=== PATIENT | female | born 1940 | race Caucasian/White ===

== ENCOUNTER 2022-09-25 12:53 | Outpatient (OUT) | payer MEDICARE, MEDICAID, SELFPAY ==
--- NOTE | 2022-09-25 13:02 | US_ITS ---
The [address] [address] Patient Name: MICHEL GRIDER MRN: [id number] date: 1940 Sex: F Assigned Patient Location: US Current Patient Location: US Accession/Order Number: [id number] Exam Date: 09/25/2022 13:03 Report Date: 09/25/2022 14:09 At the request of: GRACIELA SWARTZ Procedure: US thyroid EXAMINATION: US thyroid HISTORY: Thyroid Nodule COMPARISON: Ultrasound thyroid 07/31/2020 FINDINGS: RIGHT LOBE: Heterogeneous lobe with stable heterogeneous 2.2 x 1.7 x 1.5 cm hypervascular TR 3 nodule within mid body. Lobe size: 3.7 x 2.2 x 2.8 cm LEFT LOBE: Diffuse heterogeneity throughout the lobe. 2 small hyperechoic nodules within mid body, 4 mm TR 4, and 3 mm TR 3 respectively. Lobe size: 3.6 x 2.0 x 1.8 cm ISTHMUS: Heterogeneous and thickened. Thickness: 6 cm IMPRESSION: 1. Markedly heterogeneous thyroid gland; nonspecific. 2. Stable 2.2 cm TR 3 nodule within right lobe mid body; unchanged over past 2 years, and biopsied on 09/15/2020 with benign results at that time. 3. Previously described large heterogeneous nodule within left lobe is not seen; the entire lobe is diffusely heterogeneous. There are 2 small nodules within the lobe; nonspecific but not overtly suspicious. TR3 (mildly suspicious): > 1.5 cm, follow-up ultrasound in 1, 3, and 5 years. > 2.5 cm, fine needle aspiration. Electronically authenticated by: LIBBY GOINS Date: 09/25/2022 14:09
== END 2022-09-25 12:54 | disposition home or self-care (01) ==
PROVIDERS: PCP Nurse Practitioner Family; Visit Provider Otolaryngology
DX: E04.2 Nontoxic multinodular goiter (principal)
CPT/HCPCS: 76536

== ENCOUNTER 2023-01-14 10:46 | Observation (INO) | payer MEDICARE, MEDICAID, SELFPAY ==
[2023-01-14] VITALS (30 sets, daily range): BP systolic 122–174; BP diastolic 62–100; PULSE 65–85; RESP 14–26; TEMP 36.7–36.9; O2SAT 92–99; BMI 23.8; BMI 22.3
--- NOTE | 2023-01-14 11:20 | XR_ITS ---
The [address] [address] Patient Name: MICHEL GRIDER MRN: [id number] date: 1940 Sex: F Assigned Patient Location: ED.MAIN Current Patient Location: ER Accession/Order Number: [id number] Exam Date: 01/14/2023 11:31 Report Date: 01/14/2023 12:18 At the request of: PK BRIGGS Procedure: XR knee RT 4V PROCEDURE: XR knee RT 4V HISTORY: fall, right knee pain COMPARISON: None. FINDINGS: BONES:Mild narrowing of the joint spaces with moderate size periarticular degenerative osteophytes. No fracture, dislocation, bone lesion. No significant articular surface irregularity. SOFT TISSUES:No visible soft tissue swelling. EFFUSION:None visible. OTHER: Negative. XR/XR knee RT 4V IMPRESSION: 1. Mild to moderate degenerative joint disease. 2. No acute bone abnormality. Electronically authenticated by: LIBBY GOINS Date: 01/14/2023 12:18
--- NOTE | 2023-01-14 11:20 | XR_ITS ---
The [address] [address] Patient Name: MICHEL GRIDER MRN: [id number] date: 1940 Sex: F Assigned Patient Location: ER Current Patient Location: ER Accession/Order Number: [id number] Exam Date: 01/14/2023 11:31 Report Date: 01/14/2023 12:21 At the request of: PK BRIGGS Procedure: XR hip RT 2V w/ pelvis PROCEDURE: XR hip RT 2V w/ pelvis HISTORY: fall, hip pain COMPARISON: None. FINDINGS: BONES:No fracture, acute abnormality, or significant arthropathy of the hips and pelvis. SOFT TISSUES:No visible soft tissue swelling. EFFUSION:None visible. OTHER: Marked scoliosis of the visible lower lumbar spine. XR/XR hip RT 2V w/ pelvis IMPRESSION: 1. No acute bone abnormality or significant degenerative changes of the right hip were patient describes pain. 2. Scoliosis and degenerative disc disease of lumbar spine. Electronically authenticated by: LIBBY GOINS Date: 01/14/2023 12:21
--- NOTE | 2023-01-14 11:59 | CT_ITS ---
[place] [id number] Patient Name: MICHEL GRIDER MRN: [id number] date: 1940 Sex: F Assigned Patient Location: ER Current Patient Location: ER Accession/Order Number: [id number] Exam Date: 01/14/2023 12:04 Report Date: 01/14/2023 13:12 At the request of: PK BRIGGS Procedure: CT pelvis wo con EXAMINATION: CT pelvis wo con HISTORY: fall, pelvis pain COMPARISON: No relevant comparison available. TECHNIQUE: Axial, Coronal, and Sagittal CT images obtained with IV contrast. Dose reduction techniques were achieved by using automated exposure control and/or adjustment of mA and/or kV according to patient size and/or use of iterative reconstruction technique. FINDINGS: BOWEL: Marked diverticulosis of the distal colon without acute inflammatory changes. No abnormal bowel dilation or wall thickening. LYMPH NODES: No adenopathy. URINARY BLADDER: No visible focal wall thickening, lesion, or calculus. PELVIC ORGANS: Hysterectomy. ANTERIOR WALL: No hernia. BONES: No bone lesion or fracture. Grade 2 right lateral listhesis of L3 on 4. Marked degenerative disc disease L5-S1. Multilevel marked degenerative facet arthropathy on the right side. OTHER: Negative. CT/CT pelvis wo con IMPRESSION: 1. No appreciable acute bone abnormality. 2. Marked scoliosis and degenerative changes of lumbar spine. Electronically authenticated by: LIBBY GOINS Date: 01/14/2023 13:12
--- NOTE | 2023-01-14 13:21 | ED.FALL1 ---
HPI - Fall General Chief Complaint: Fall Stated Complaint: LOWER EXTREMITY PAIN Time Seen by Provider: 01/14/23 11:00 Source: patient Mode of arrival: ambulance Limitations: no limitations History of Present Illness HPI Narrative: The patient fell out of her chair at home two days ago and injured the right knee and right hip/pelvis. She was unable to get out of bed this morning due to increased pain, despite taking tylenol at home. It was a mechanical fall - she is supposed to use a walker at home for support but, according to the family, frequently does not. As she went to stand she lost her footing and fell to the right, landing on the right side. She did not hit her head, injure her neck or her back. Family was present at the time. They told me that she lives with them and they care for her regularly. No other injuries. Related Data Allergies Allergy/AdvReac Type Severity Reaction Status Date / Time baclofen Allergy Severe Verified 01/14/23 10:59 codeine Allergy Severe Verified 01/14/23 10:59 methocarbamol [From Robaxin] Allergy Severe Verified 01/14/23 10:59 [facility] Medical History (Updated 01/14/23 @ 13:32 by Pk Briggs) History of ankle fracture ?Z87.81 - Personal history of (healed) traumatic fracture (ICD-10) History of arthritis ?Z87.39 - Personal history of other diseases of the musculoskeletal system and connective tissue (ICD-10) History of COPD ?Z87.09 - Personal history of other diseases of the respiratory system (ICD-10) History of dementia ?Z86.59 - Personal history of other mental and behavioral disorders (ICD-10) History of gastroesophageal reflux (GERD) ?Z87.19 - Personal history of other diseases of the digestive system (ICD-10) History of hypertension ?Z86.79 - Personal history of other diseases of the circulatory system (ICD-10) Surgical History (Updated 01/14/23 @ 11:17 by Jesse Bach) History of hysterectomy ?Z90.710 - Acquired absence of both cervix and uterus (ICD-10) Exam Narrative Exam Narrative: Nurses note and vital signs reviewed and patient is not hypoxic. afebrile General: The patient appears well and in no apparent distress. Patient is resting comfortably on cart. GCS = 15. Skin: Warm, dry, no pallor noted. Head: Normocephalic, atraumatic Neck: Supple, trachea mid-line. Full ROM and no cervical spinal tenderness. Eyes: PERRLA, EOMI ENT: TMs clear, no hemotympanum detected, no blood in posterior oropharynx Cardiovascular: Regular Rate and Rhythm Respiratory: Patient is in no distress, no accessory muscle use, lungs are clear to auscultation, no wheezing, rales or rhonchi Chest Wall: no tenderness, no flail chest, contusion, abrasion, or signs of trauma. Back: No thoracic or lumbar tenderness to palpation. Negative straight leg raise bilaterally. Musculoskeletal: Tenderness throughout the medial right hip and pain with any passive or active attempt to move the right hip. No RLE shortening or rotation. Tenderness throughout the right knee with a small amount of swelling and osteoarthritic changes noted. Pulses at femoral, DP, PT, and popliteal were 2+ bilaterally. Moves remaining three extremities and the right ankle and foot in all modalities with 5/5 strength. GI: Normal bowel sounds, no tenderness to palpation, no masses appreciated. No rebound, guarding, or rigidity noted. Neurological: A&O x4, normal equal performance test consultant strength, normal finger to nose, normal speech, normal coordination, normal motor, normal sensory. Psychiatric: Cooperative Constitutional Vital Signs, click to edit/add: Last Vital Signs Temp 98.5 F 01/14/23 10:48 Pulse 74 01/14/23 11:04 Resp 16 01/14/23 11:04 BP 174/100 H 01/14/23 10:48 Pulse Ox 97 01/14/23 11:04 O2 Del Method Room Air 01/14/23 10:55 Course Vital Signs Vital signs: Vital Signs Temperature 98.5 F 01/14/23 10:48 Pulse Rate 84 01/14/23 10:48 Respiratory Rate 16 01/14/23 10:48 Blood Pressure 174/100 H 01/14/23 10:48 Pulse Oximetry 97 01/14/23 10:48 Oxygen Delivery Method Room Air 01/14/23 10:48 Temperature 98.5 F 01/14/23 10:48 Pulse Rate 74 01/14/23 11:04 Respiratory Rate 16 01/14/23 11:04 Blood Pressure 174/100 H 01/14/23 10:48 Pulse Oximetry 97 01/14/23 11:04 Oxygen Delivery Method Room Air 01/14/23 10:55 MDM - Fall MDM Narrative Medical decision making narrative: xrays of the right hip and pelvis did not find an acute fracture. She was sent for CT pelvis which also did not identify fracture. Her knee xrays revealed arthritic changes without fracture. Patient and family informed of results. Patient unable to bear weight on the right LE or ambulate. She will be admitted for further evaluation and treatment including PT/OT eval. Case discussed with the individualized education plan aide admitting physician, Dr Whyte, who requested [facility] with obs admission. Imaging Data CT scan - pelvis: Radiologist's impression: Patient Name: MICHEL GRIDER MRN: [id number] date: 1940 Sex: F Assigned Patient Location: ER Current Patient Location: ER Accession/Order Number: [id number] Exam Date: 01/14/2023 12:04 Report Date: 01/14/2023 13:12 At the request of: PK BRIGGS Procedure: CT pelvis wo con EXAMINATION: CT pelvis wo con HISTORY: fall, pelvis pain COMPARISON: No relevant comparison available. TECHNIQUE: Axial, Coronal, and Sagittal CT images obtained with IV contrast. Dose reduction techniques were achieved by using automated exposure control and/or adjustment of mA and/or kV according to patient size and/or use of iterative reconstruction technique. FINDINGS: BOWEL: Marked diverticulosis of the distal colon without acute inflammatory changes. No abnormal bowel dilation or wall thickening. LYMPH NODES: No adenopathy. URINARY BLADDER: No visible focal wall thickening, lesion, or calculus. PELVIC ORGANS: Hysterectomy. ANTERIOR WALL: No hernia. BONES: No bone lesion or fracture. Grade 2 right lateral listhesis of L3 on 4. Marked degenerative disc disease L5-S1. Multilevel marked degenerative facet arthropathy on the right side. OTHER: Negative. IMPRESSION: 1. No appreciable acute bone abnormality. 2. Marked scoliosis and degenerative changes of lumbar spine. Electronically authenticated by: LIBBY GOINS Date: 01/14/2023 13:12 xr hip: Radiologist's impression: Patient Name: MICHEL RGIDER MRN: [id number] date: 1940 Sex: F Assigned Patient Location: ER Current Patient Location: ER Accession/Order Number: [id number] Exam Date: 01/14/2023 11:31 Report Date: 01/14/2023 12:21 At the request of: PK BRIGGS Procedure: XR hip RT 2V w/ pelvis PROCEDURE: XR hip RT 2V w/ pelvis HISTORY: fall, hip pain COMPARISON: None. FINDINGS: BONES:No fracture, acute abnormality, or significant arthropathy of the hips and pelvis. SOFT TISSUES:No visible soft tissue swelling. EFFUSION:None visible. OTHER: Marked scoliosis of the visible lower lumbar spine. IMPRESSION: 1. No acute bone abnormality or significant degenerative changes of the right hip were patient describes pain. 2. Scoliosis and degenerative disc disease of lumbar spine. Electronically authenticated by: LIBBY GOINS Date: 01/14/2023 12:21 xr knee: Radiologist's impression: Patient Name: MICHEL GRIDER MRN: [facility]:[id number] date: 1940 Sex: F Assigned Patient Location: ED.MAIN Current Patient Location: Accession/Order Number: [id number] Exam Date: 01/14/2023 11:31 Report Date: 01/14/2023 12:18 At the request of: PK BRIGGS Procedure: XR knee RT 4V PROCEDURE: XR knee RT 4V HISTORY: fall, right knee pain COMPARISON: None. FINDINGS: BONES:Mild narrowing of the joint spaces with moderate size periarticular degenerative osteophytes. No fracture, dislocation, bone lesion. No significant articular surface irregularity. SOFT TISSUES:No visible soft tissue swelling. EFFUSION:None visible. OTHER: Negative. IMPRESSION: 1. Mild to moderate degenerative joint disease. 2. No acute bone abnormality. Electronically authenticated by: LIBBY GOINS Date: 01/14/2023 12:18 Discharge Plan Discharge Chief Complaint: Fall Clinical Impression: Acute knee pain, Inability to ambulate due to hip, Contusion of hip Patient Disposition: Admitted as Observation Time of Disposition Decision: 13:32 Referrals: CLARA RAJAN [Primary Care Provider] - 1 week
--- NOTE | 2023-01-14 15:22 | SWNOTE1 ---
SW messaged INTERACTIVE ART DIRECTOR Hilaria to have PT/OT ordered for pt.
[2023-01-14] MEDS: LACTATED RINGER'S SOLUTION 1,000 ML 50 ML IV (16:59)
[2023-01-14] MEDS: LOSARTAN POTASSIUM 25 MG TABLET 50 MG PO (17:01)
[2023-01-14] MEDS: OXYBUTYNIN chloride 5 MG TABLET PO (17:03)
[2023-01-14 17:20] LABS: Basophils Absolute Auto 0.1 10^3/uL (0.0-0.1); Basophils Percent Auto 1.3 % (0.2-2.0); Eosinophils Percent Auto 0.4 % (0.9-7.0); Hematocrit 36.9 % (36.0-48.0); Hemoglobin 11.7 g/dL (12.0-16.0); Immature Granulocytes Abs Auto 0.01 10^3/uL (0.00-0.03); Immature Granulocytes Pct Auto 0.2 % (0.0-0.5); Lymphocytes Absolute Auto 1.7 10^3/uL (1.2-3.8); Mean Corpuscular HGB Conc 31.7 g/dL (29.9-35.2); Mean Corpuscular Hemoglobin 26.1 pg (26.7-34.0); Mean Corpuscular Volume 82.2 fL (81.0-99.0); Mean Platelet Volume 9.1 fL (9.5-13.5); Monocytes Absolute Auto 0.7 10^3/uL (0.3-0.8); Neutrophils Absolute Auto 2.8 10^3/uL (1.4-6.5); Neutrophils Percent Auto 53.1 % (43.0-75.0); Platelet Count 380 10^3/uL (150-450); Red Blood Count 4.49 10^6/uL (4.20-5.40); Red Cell Distribution Width 15.9 % (11.0-15.0); White Blood Count 5.2 10^3/uL (4.0-11.0)
[2023-01-14 17:43] LABS: Alanine Aminotransferase 11 U/L (14-59); Albumin Globulin Ratio 0.8; Albumin Level 3.1 g/dL (3.4-5.0); Alkaline Phosphatase 53 U/L (46-116); Aspartate Amino Transferase 15 U/L (15-37); BUN Creatinine Ratio 15.9; Bilirubin Total 0.9 mg/dL (0.2-1.0); Calcium 8.8 mg/dL (8.5-10.1); Carbon Dioxide 30.8 mmol/L (21.0-32.0); Chloride 103 mmol/L (98-107); Creatine Kinase 37 U/L (26-192); Creatine Kinase MB <0.50 ng/mL (<=3.60); Estimated GFR (African America >60 (>=60); Estimated GFR (Non-African Ame >60 (>=60); Free T3 2.54 pg/mL (2.18-3.98); Globulin 3.7 g/dL; Glucose 87 mg/dL (74-106); Magnesium 2.1 mg/dL (1.8-2.4); Myoglobin 54 ng/mL (9-82); Potassium 3.8 mmol/L (3.5-5.1); Sodium 138 mmol/L (136-145); Thyroid Stimulating Hormone 0.448 uIU/mL (0.358-3.740); Total Protein 6.8 g/dL (6.4-8.2); Troponin I High Sensitivity 17.7 pg/mL (4.0-51.3)
[2023-01-14 17:53] LABS: Lactate/Lactic Acid 0.7 mmol/L (0.4-2.0)
[2023-01-15] VITALS (19 sets, daily range): BP systolic 99–151; BP diastolic 49–73; PULSE 59–73; RESP 18–20; TEMP 36.5–36.9; O2SAT 58–95
[2023-01-15 00:51] LABS: Bilirubin Urine NEGATIVE (NEGATIVE); Blood Urine NEGATIVE (NEGATIVE); Clarity Urine CLEAR (CLEAR); Color Urine YELLOW (YELLOW); Glucose Urine UA NEGATIVE (NEGATIVE); Ketones Urine NEGATIVE (NEGATIVE); Leukocyte Esterase Urine NEGATIVE (NEGATIVE); Nitrite Urine NEGATIVE (NEGATIVE); Protein Urine TRACE mg/dL (NEG/TRACE); pH Urine 7.5 (5.0-9.0)
[2023-01-15 00:59] LABS: Bacteria Urine NONE SEEN #/HPF (NONE SEEN); Cast Seen? SEEN #/LPF (NONE SEEN); Crystals Seen? None Seen #/HPF (None Seen); Mucus Urine NONE SEEN (NONE SEEN); RBC Urine NONE SEEN #/HPF (0-2); Squamous Epithelial Cell Urine RARE #/LPF (NONE/RARE)
[2023-01-15 01:00] LABS: Hyaline Casts Urine RARE
[2023-01-15] MEDS: OMEPRAZOLE 40 MG CAPSULE.DR PO (06:37)
--- NOTE | 2023-01-15 08:36 | CM.NOTE ---
Rounds made with Dr. Whyte. Sitting in chair on arrival and had worked with P.T. prior to Hospitalist visit. Potential discharge later today.
--- NOTE | 2023-01-15 08:39 | P.HP_ITS ---
H&P: HPI History of Present Illness Chief complaint: LOWER EXTREMITY PAIN/ INABILITY TO AMBULATE Narrative: Patient had a fall at home. Had have EMS come and get her. With EMS there they tried to ambulate her without success. Brought into the emergency room. X-rays all negative but patient still with significant pain to the point of unable to ambulate. She is not safe for discharge to home was admitted for observation. Review of Systems ROS Status of ROS 10 or more systems reviewed and unremarkable except as noted in history and below Constitutional Denies: fever Eyes Denies: change in vision Ears, nose, mouth, and throat Denies: throat pain Cardiovascular Denies: chest pain Respiratory Denies: shortness of breath Gastrointestinal Denies: abdominal pain PFSH PFSH Medical History (Updated 01/14/23 @ 14:56 by Marcelina Barrera) Age related osteoporosis ?M81.0 - Age-related osteoporosis without current pathological fracture (ICD- 10) History of ankle fracture ?Z87.81 - Personal history of (healed) traumatic fracture (ICD-10) History of arthritis ?Z87.39 - Personal history of other diseases of the musculoskeletal system and connective tissue (ICD-10) History of COPD ?Z87.09 - Personal history of other diseases of the respiratory system (ICD- 10) History of dementia ?Z86.59 - Personal history of other mental and behavioral disorders (ICD-10) History of gastroesophageal reflux (GERD) ?Z87.19 - Personal history of other diseases of the digestive system (ICD-10) History of hypertension ?Z86.79 - Personal history of other diseases of the circulatory system (ICD- 10) Osteoarthritis ?M19.90 - Unspecified osteoarthritis, unspecified site (ICD-10) Surgical History (Updated 01/14/23 @ 14:57 by Marcelina Barrera) History of ankle surgery ?Z98.890 - Other specified postprocedural states (ICD-10) History of cataract surgery ?Z98.49 - Cataract extraction status, unspecified eye (ICD-10) History of hysterectomy ?Z90.710 - Acquired absence of both cervix and uterus (ICD-10) Social History (Updated 01/14/23 @ 14:59 by Marcelina Barrera) Within the past year, how often did you have a drink containing alcohol: never Score interpretation: A score less than 3 is consistent with normal alcohol consumption. Smoking status: Never smoker Non-prescribed substance use: denies use Previous occupational history: Office Engineer Highest level of school completed/degree received: some college, no degree Are you now , , , , never or living with a partner: In a typical week, how many times do you talk on the telephone with family, friends, or neighbors: 3 or more times per week How often do you get together with friends or relatives: 3 or more times per week How often do you attend denominational or latter-day services: 1-3 times per year Do you belong to any clubs or organizations such as denominational groups unions, [employer] or athletic groups, or school groups: no Total score: 1 Score interpretation: A score of less than or equal to 1 indicates the most socially isolated. Little interest or pleasure in doing things: not at all Feeling down, depressed, or hopeless: not at all Feel stressed/tense/nervous/anxious/difficulty sleeping: not at all Due to disability, difficulty making decisions: No Do you think of yourself as: straight/heterosexual Gender Identity: female Meds Home Medications and Allergies Home Medications Medication Instructions Recorded Confirmed Type famotidine 20 mg tablet 20 mg PO Q8H PRN acid reflux 01/14/23 01/14/23 History losartan 25 mg tablet 50 mg PO QDAY 01/14/23 01/14/23 History oxybutynin chloride 5 mg tablet 5 mg PO QDAY 01/14/23 01/14/23 History pantoprazole 40 mg tablet,delayed 40 mg PO DAILY 01/14/23 01/14/23 History release tramadol 50 mg tablet 50 mg PO DAILY PRN pain 01/14/23 01/14/23 History Allergies Allergy/AdvReac Type Severity Reaction Status Date / Time codeine Allergy Severe Verified 01/14/23 10:59 methocarbamol [From Robaxin] Allergy Severe Verified 01/14/23 10:59 Exam Constitutional Vital Signs, click to edit/add: Last Vital Signs Temp 98.5 F 01/15/23 06:00 Pulse 70 01/15/23 07:43 Resp 20 01/15/23 06:00 BP 151/73 H 01/15/23 06:00 Pulse Ox 92 L 01/15/23 06:00 O2 Del Method Room Air 01/15/23 06:00 Documenting provider has reviewed patient's vital signs: yes Common normals: no apparent distress HENMT Common normals: moist oral mucous membranes Chest Common normals: inspection of chest normal and palpation of chest normal Respiratory Common normals: normal respiratory effort and no retractions Cardio Common normals: regular rate and regular rhythm Extremity Common normals: normal to inspection and full ROM Results Labs Labs: Short CBC 01/14/23 Range/Units 16:56 WBC 5.2 (4.0-11.0) 10^3/uL Hgb 11.7 L (12.0-16.0) g/dL Hct 36.9 (36.0-48.0) % Plt Count 380 (150-450) 10^3/uL BMP 01/14/23 16:56 Sodium 138 Potassium 3.8 Chloride 103 Carbon Dioxide 30.8 BUN 11.0 Creatinine 0.69 Glucose 87 Calcium 8.8 Cardiac Enzymes 01/14/23 Range/Units 16:56 Total Creatine Kinase 37 (26-192) U/L CK-MB (CK-2) <0.50 (<=3.60) ng/mL Liver Function 01/14/23 Range/Units 16:56 Total Bilirubin 0.9 (0.2-1.0) mg/dL AST 15 (15-37) U/L ALT 11 L (14-59) U/L Alkaline Phosphatase 53 (46-116) U/L Albumin 3.1 L (3.4-5.0) g/dL Urine 01/14/23 Range/Units 00:10 Urine Color Yellow (YELLOW) Urine Clarity Clear (CLEAR) Urine pH 7.5 (5.0-9.0) Ur Specific [place] 1.020 (1.005-1.025) Urine Protein Trace (NEG/TRACE) mg/dL Urine Glucose (UA) Negative (NEGATIVE) mg/dL Assessment and Plan Assessment and Plan (1) Acute knee pain: (2) Inability to ambulate due to hip: (3) Contusion of hip: Plan Patient mated to observation with orthopedic injury-no fracture, unable to ambulate in ER, after resting overnight she has been up and ambulating in her room. We will see how she tolerates breakfast, ambulate in hallway, if she is successful with both of those she can be discharged home in improving condition. Medications see list. Follow-up with her PCP as needed. Iron deficiency anemia-monitor as an outpatient Hypertension-continue with current medications, monitor as an outpatient GERD-continue with current medications Bladder instability-continue with home medications
[2023-01-15] MEDS: POLYETHYLENE GLYCOL 3350 17 GM POWDER PACKET PO (09:55)
[2023-01-15] MEDS: OXYBUTYNIN chloride 5 MG TABLET PO (09:55)
[2023-01-15] MEDS: LOSARTAN POTASSIUM 25 MG TABLET 50 MG PO (09:55)
[2023-01-15] MEDS: PNEUMOCOCCAL 23 VACCINE 25 MCG/0.5 ML SYRINGE IM (10:15)
--- NOTE | 2023-01-15 12:24 | SWNOTE1 ---
SW spoke with pt and daughter in room. Therapy did recommend SNF for pt at discharge. SW did let them know this. Pt's daughter spoke with pt and they have decided to pursue SNF for pt. She is a precert. SW provided list from medicare.gov to pt's daughter, she will review and let SW know.
--- NOTE | 2023-01-15 13:14 | SWNOTE1 ---
Pt's daughter has chose [facility]. SW sent referral so they can cost out.
[2023-01-15] MEDS: LACTATED RINGER'S SOLUTION 1,000 ML 50 ML IV (13:43)
--- NOTE | 2023-01-15 14:48 | SWNOTE1 ---
SW checked in with [facility] and they are waiting for financial to give the OK. SW did review [employer] form with pt's daughter earlier, Pt's daughter voiced understanding and had no questions at this time. Pt's daughter signed form, original given to daughter and copy placed chart.
--- NOTE | 2023-01-15 15:25 | SWNOTE1 ---
Precert to [facility] started, SW notified daughter.
[2023-01-16] VITALS (9 sets, daily range): BP systolic 137–145; BP diastolic 65–71; PULSE 47–69; RESP 18; TEMP 36.6; O2SAT 94
[2023-01-16] MEDS: OMEPRAZOLE 40 MG CAPSULE.DR PO (06:08)
--- NOTE | 2023-01-16 08:36 | CM.NOTE ---
Rounding with Dr. Whyte. The patient has insurance approval for discharge to SNF. Pt. anticipated discharge today to [facility].
--- NOTE | 2023-01-16 08:50 | P.DS_ITS ---
DS: Providers Provider Date of admission: 01/14/23 13:33 Primary care physician: CLARA RAJAN Consults: 01/14/23 15:33 Occupational Therapy Eval and Treat Routine Reason for consultation: Generalized weakness; falls Has provider been notified: No Physical Therapy Eval and Treat Routine Reason for consultation: Generalized weakness; falls Has provider been notified: No DS: Diagnosis Discharge Diagnosis (1) Acute knee pain: (2) Inability to ambulate due to hip: (3) Contusion of hip: DS: Summary Hospital Course Hospital Course: Patient admitted through the emergency room to observation bed for fall, patient unable to ambulate in the emergency room. No other injuries, no fractures noted on x-rays. Patient was admitted for pain control. Physical therapy worked with the patient. They recommended rehab. Once the paperwork was completed patient was transferred to rehab for hopefully a short stay. Medications see list. Follow-up with her PCP at discharge. Time Spent with Patient Time attestation: Total time spent providing and/or coordinating discharge services: Exam Constitutional Vital Signs, click to edit/add: Last Vital Signs Temp 97.9 F 01/16/23 05:45 Pulse 52 L 01/16/23 07:56 Resp 18 01/16/23 05:45 BP 145/65 H 01/16/23 05:45 Pulse Ox 94 L 01/16/23 05:45 O2 Del Method Room Air 01/16/23 05:45 Documenting provider has reviewed patient's vital signs: yes Common normals: no apparent distress HENTX Common normals: moist oral mucous membranes Chest Common normals: inspection of chest normal and palpation of chest normal Respiratory Common normals: normal respiratory effort and no retractions Cardio Common normals: regular rate and regular rhythm Extremity Common normals: normal to inspection and full ROM Discharge Plan Discharge Disposition: Xfer SNF Discharge Medications: Continued famotidine 20 mg tablet 20 mg PO Q8H PRN (Reason: acid reflux) losartan 25 mg tablet 50 mg PO QDAY oxybutynin chloride 5 mg tablet 5 mg PO QDAY pantoprazole 40 mg tablet,delayed release (DR/EC) 40 mg PO DAILY tramadol 50 mg tablet 50 mg PO DAILY PRN (Reason: pain) Rx Instructions: Takes very rarely Meteorological Equipment Repairer/English Language Arts Teacher Instructions: Discharge to [facility] for rehab Forms: Portal Instructions Follow Up Appointments: Follow up with physician at [facility] Discharge Date/Time: 01/16/23 13:37
[2023-01-16] MEDS: OXYBUTYNIN chloride 5 MG TABLET PO (09:05)
[2023-01-16] MEDS: LOSARTAN POTASSIUM 25 MG TABLET 50 MG PO (09:05)
--- NOTE | 2023-01-16 11:28 | SWNOTE1 ---
Pt is approved to go to [facility] skilled. SW called and let daughter know. Pt's daughter is going to transport her to [facility] and she will be here around 1:00. SW let nursing and [facility] know time.
--- NOTE | 2023-01-16 11:37 | PT.DAILY ---
Physical Therapy Daily Note PT Daily Note/Assess Start: 01/16/23 11:29 Freq: Status: Active Protocol: Document 01/16/23 11:29 ROMAN (Rec: 01/16/23 11:36 ROMAN [id number]) Physical Therapy Daily Note/Assessment Time In/Time Out Time In 11:15 Time Out 11:28 Pain In Pain N/A Pain Out Pain N/A Subjective Subjective Pt sitting in BS chair upon arrival. Agrees to PT. Planned dc [facility] today. Therapeutic Exercise Time Therapeutic Exercise Minutes (minutes) 3 Therapeutic Exercise Units 0 Therapeutic Exercise Treatment Therapeutic Exercise Treatment Seated AP, LAQ, marches, and add squeezes 10x ea to improve functional mobility prior to gait. Therapeutic Activity Time Therapeutic Activity Minutes (minutes) 8 Therapeutic Activity Units 1 Therapeutic Activity Treatment Chair Transfer Ability Contact Guard Assist Therapeutic Activity Comments Pt performs sit>stand from BS chair to RW with CGA and increased time to complete. Amb 50' with RW SBA then needs to use restroom. Pt demonstrates forward flexed posture with gait. Pt able to ana/doff brief and using grab bar to assist with lowering to toilet and standing up. Static standing at sink with fair+ balance as she rests her body against sink. Pt amb back to BS chair about 15' with RW. Remains in BS chair with call light in reach and needs met. Total Physical Therapy Time Total Therapy Minutes 11 Total Physical Therapy Units 1 Summary Daily Note Summary Improved gait endurance. Requires increased time for transfers. Would benefit from SNF stay.
--- NOTE | 2023-01-16 11:42 | SWNOTE1 ---
SW completed HENS, updated packet, and sent over dc orders to [facility]. Pt is going to [facility] skilled for rehab.
== END 2023-01-16 13:37 ==
LOC: ER 13:32 → MS 14:00
PROVIDERS: Admitting Provider Family Medicine; Emergency Provider Emergency Medicine; PCP Nurse Practitioner Family; Visit Provider Family Medicine
DX: M25.561 Pain in right knee (principal); S70.01XA Contusion of right hip, initial encounter; R26.2 Difficulty in walking, not elsewhere classified; I10 Essential (primary) hypertension; W19.XXXA Unspecified fall, initial encounter; M81.0 Age-related osteoporosis without current pathological fracture; J44.9 Chronic obstructive pulmonary disease, unspecified; F03.90 Unspecified dementia, unspecified severity, without behavioral disturbance, psychotic disturbance, mood disturbance, and anxiety; M19.90 Unspecified osteoarthritis, unspecified site; K21.9 Gastro-esophageal reflux disease without esophagitis; Z98.49 Cataract extraction status, unspecified eye; Z87.81 Personal history of (healed) traumatic fracture; Z90.710 Acquired absence of both cervix and uterus; Z79.899 Other long term (current) drug therapy; Z23 Encounter for immunization
CPT/HCPCS: 36415; 72192; 73502; 73564; 80048; 80053; 81001; 82550; 82553; 83605; 83735; 83874; 83880; 84436; 84443; 84481; 84484; 85025; 87086; 87150; 87186; 90662; 90732; 94667; 94668; 94761; 97161; 97165; 97530; 97535; 99285; G0008; G0009; G0378

== ENCOUNTER 2024-09-24 19:43 | Emergency (ER) | payer MEDICARE, MEDICAID, SELFPAY ==
--- OUTSIDE RECORDS SUMMARY | 2023-09-02 09:40 | XMS_ITS ---
Author Organization [facility] Address [address] [place] [address] Care Team Providers Care Cafe Assistant Name Role Phone Blanche Joshi Primary Care Provider Robinson Grey [phone] REASON FOR VISIT IMPRESSION Encounters Encounter Location Date Provider Diagnosis [address] [address] 09/02/2023 Robinson Grey Plan Of Treatment No Information Progress Notes * MICHEL GRIDER LDOB:1940 (83 yo F)Acc No.[id number]:09/02/2023 Dental Appointment Patient: OSORIO FLORESHA Kelley Provider: Tacho Grey DDS :1940 A ge:82 Y S ex:Female Date:09/02/2023 Address:[address] [place], [place] [id number] Pcp:Blanche Joshi Subjective: * Chief Complaints: * 1 . IMPRESSION. * Medical History: Objective: * Vitals: Assessment: Plan: * Treatment: * Images: * Electronic signature of Gill Grey DDS on 09/24/2024 at 07:54 PM EDT Sign off status: Pending * Provider: Tacho Grey DDS Date: 09/02/2023 Generated for Renetta ross/Faashishg/eTransmitting on: 09/24/2024 07:54 PM EDT
--- OUTSIDE RECORDS SUMMARY | 2023-09-23 10:30 | XMS_ITS ---
Author Organization [facility] es Address [address] [address] Care Team Providers Care Legal Administrator Name Role Phone Blanche Joshi Primary Care Provider Robinson Grey [phone] REASON FOR VISIT IMPRESSION-MIKA Encounters Encounter Location Date Provider Diagnosis [address] [place] [address] 09/23/2023 Robinson Grey Plan Of Treatment No Information Progress Notes * MICHEL GRIDER LDOB:1940 (83 yo F)Acc No.[id number]:09/23/2023 Dental Appointment Patient: OSORIO FLORESHA Kelley Provider: Tacho Grey DDS :1940 A ge:82 Y S ex:Female Date:09/23/2023 Address:[address] [place], [place] [id number] Pcp:Blanche Joshi Subjective: * Chief Complaints: * 1 . IMPRESSION-MIKA. * Medical History: Objective: * Vitals: Assessment: Plan: * Treatment: * Images: * Electronic signature of Gill Grey DDS on 09/24/2024 at 07:55 PM EDT Sign off status: Pending * Provider: Tacho Grey DDS Date: 09/23/2023 Generated for Renetta ross/Fasaman/eTransmitting on: 09/24/2024 07:55 PM EDT
[2024-09-24] VITALS (27 sets, daily range): BP systolic 147–182; BP diastolic 67–113; PULSE 58–69; TEMP 37.2; O2SAT 80–98; BMI 21.9
--- OUTSIDE RECORDS SUMMARY | 2024-09-24 19:54 | XMS_ITS | Encounter Summary ---
Author Organization [facility] Address [address] [place] [address] Care Team Providers Care Reading Professor Name Role Phone MadelynOsbaldoie REPAIR DEPARTMENT SUPERVISOR Unavailable Craig Villanueva MD Primary Care Provider Friday, Melly MEASUREMENT ANALYST Unavailable [phone] Craig Villanueva MD Unavailable [phone] Hilaria Carrera RN Unavailable Leticia Palmer MEASUREMENT ANALYST Unavailable Amira Godoy COLOR CONTROL SUPERVISOR Unavailable Encounter Details Date Type Department Care Team (Late st Contact Info) Description 06/19/2023 [facility] [address] [facility] [address] [place] [address] Craig Villanueva MD 112 [facility] 110 [place] [address] Social History Tobacco Use Types Packs/Day Years Used Date Smoking Tobacco: Never Smokeless Tobacco: Never Alcohol Use Standard Drinks/Week Comments Not Currently 0 (1 standard drink = 0.6 oz pure alcohol) caffeine intake: 1-2 cups per day Social Connection and Isolation Panel [NHANES] A nswer Date Recorded In a typical week, how many times do you talk on the phone with family, friends, or neighbors? Never 05/14/2023 How often do you get together with friends or re latives? Never 05/14/2023 How often do you attend yazidi or adventist serv ices? Never 05/14/2023 Do you belong to any clubs o r organizations such as yazidi groups, unions, fraternal or athletic groups, or school groups? No 05/14/2023 How often do you attend meet ings of the clubs or organizations you belong to? Never 05/14/2023 Are you , , di vorced, , never , or living with a partner? 05/14/2023 AUDIT-C Answer Date Recorded Q1: How often do you have a drink containing alcohol? Never 05/14/2023 Q2: How many drinks containi ng alcohol do you have on a typical day when you are drinking? Patient does not drink Q3: How often do you have si x or more drinks on one occasion? Never 05/14/2023 Overall Financial Resource Strain (CARDIA) Answe r Date Recorded How hard is it for you to pa y for the very basics like food, housing, medical care, and heating? Hard 05/14/2023 [facility] of Occupat ional [facility] - Occupational Stress Questionnaire Answer Date Recorded Do you feel stress - tense, restless, nervous, or anxious, or unable to sleep at night because your mind is troubled all the time - these days? Rather much 05/14/2023 Exercise Vital Sign Answer Date Recorde d On average, how many days pe r week do you engage in moderate to strenuous exercise (like a brisk walk)? 0 days 05/14/2023 On average, how many minutes do you engage in exercise at this level? 0 min 05/14/2023 Hunger Vital Sign Answer Date Recorded Within the past 12 months, y ou worried that your food would run out before you got the money to buy more. Never true 05/14/19 24 Within the past 12 months, t he food you bought just didn't last and you didn't have money to get more. Never true 05/14/2023 PRAPARE - Transportation Answer Date Re corded In the past 12 months, has l ack of transportation kept you from medical appointments or from getting medications? No 04/25 In the past 12 months, has l ack of transportation kept you from meetings, work, or from getting things needed for daily living? No 05/14/2023 Housing Stability Vital Sign Answer Sher e Recorded In the last 12 months, was t here a time when you were not able to pay the mortgage or rent on time? Patient declined 05/14/19 24 In the last 12 months, how many places have you lived? 1 05/14/2023 In the last 12 months, was t here a time when you did not have a steady place to sleep or slept in a halfway (including now)? No 05/14/2023 Comments Unknown Sex and Gender Information Value Date Recorded Sex Assigned at Female 04/28/2023 11:51 AM EST Legal Sex Female 11:16 PM EDT Gender Identity Female 04/28/2023 11:51 AM EST Sexual Orientation Straight 04/28/2023 11 :51 AM EST documented as of this encounter Plan of Treatment Not on file documented as of this encounter Visit Diagnoses Not on filedocumented in this encounter Care Teams Reading Professor Relationship Specialty Start Date End Date Craig Villanueva MD [address] [facility] [address] [place] [address] PCP - General Internal Medicine 04/28/23 Craig Villanueva MD [address] [facility] [address] [place] [address] PCP - Pedro [place] 05/23/23 Blanche Joshi NP [address] [place] [address] Referring Physician 09/25/22FridayMelly LPN [address] [facility] [address] [place] [address] Licensed Practical Nurse Family Medicine 04/28/23 04/30/24 Hilaria Carrera RN [address] [place] [address] Licensed Practical Nurse Family Medicine 04/30/24 06/08/24 Leticia aPlmer LPN [address] [facility] [address] [place] [address] 06/08/24 Amira Godoy, JORGE [address] [place] [address] Health Science Instructor Family Medicine 06/08/24 documented as of this encounter
--- OUTSIDE RECORDS SUMMARY | 2024-09-24 19:54 | XMS_ITS | Encounter Summary ---
Author Organization [facility] Address [address] [place] [address] Care Team Providers Care Educational Speech Language Clinician Name Role Phone MadelynOsbaldoie MANUAL ARTS THERAPIST Unavailable [phone] Craig Villanueva MD Primary Care Provider [phone] Friday, Melly BARREL ENDSHAKER ADJUSTER Unavailable [phone] Craig Villanueva MD Unavailable [phone] Hilaria Carrera RN Unavailable Leticia Palmer BARREL ENDSHAKER ADJUSTER Unavailable Amira Godoy DIE OPERATOR Unavailable [phone] Encounter Details Date Type Department Care Team (Late st Contact Info) Description 07/03/2023 [facility] [address] [facility] 110 [place] [address] Craig Villanueva MD 112 [facility] 110 [place] [address] Social History Tobacco Use Types [...] Never 05/14/2023 How often do you attend religion or judaism serv ices? Never 05/14/2023 Do you belong to any clubs o r organizations such as religion groups, unions, fraternal or athletic groups, or [...] housing, medical care, and heating? Hard 05/14/2023 [facility] of Occupat ional [facility] - Occupational Stress Questionnaire Answer Date Recorded [...] place to sleep or slept in a long term (including now)? No 05/14/2023 Comments Unknown Sex [...] on filedocumented in this encounter Care Teams Educational Speech Language Clinician Relationship Specialty Start Date End Date Craig Villanueva MD [address] [facility] [address] [place] [address] PCP - General Internal Medicine 04/28/23 Craig Villanueva MD [address] [facility] [address] [place] [address] PCP - Pedro [place] 05/23/23 Blanche Joshi NP [address] [place] [address] Referring Physician 09/25/22FridayMelly LPN [address] [facility] 110 [place] [address] Licensed Practical Nurse Family Medicine 04/28/23 04/30/24 Hilaria Carrera RN [address] [place] [address] Licensed Practical Nurse Family Medicine 04/30/24 06/08/24 Leticia Palmer LPN [address] [facility] 110 [place] [address] 06/08/24 Amira Godoy, JORGE [address] [place] [address] Oil Mixer Family Medicine 06/08/24 documented as of this encounter
--- OUTSIDE RECORDS SUMMARY | 2024-09-24 19:54 | XMS_ITS | Encounter Summary ---
Author Organization [facility] Address [address] [place] [address] Care Team Providers Care Golf Course Patroller Name Role Phone MadelynOsbaldoie FREEZER UNLOADER Unavailable Craig Villanueva MD Primary Care Provider Friday, Melly EMPLOYMENT PROGRAM REPRESENTATIVE Unavailable [phone] Craig Villanueva MD Unavailable [phone] Hilaria Carrera RN Unavailable Leticia Palmer EMPLOYMENT PROGRAM REPRESENTATIVE Unavailable Amira Godoy ELECTRICAL PRODUCTS ENGINEER Unavailable Encounter Details Date Type Department Care Team (Late st Contact Info) Description 06/23/2023 [facility] [address] [facility] [address] [place] [address] Craig Villanueva MD 112 [facility] 110 [place] [address] Social History Tobacco Use Types [...] Never 05/14/2023 How often do you attend jainism or baptist serv ices? Never 05/14/2023 Do you belong to any clubs o r organizations such as jainism groups, unions, fraternal or athletic groups, or [...] housing, medical care, and heating? Hard 05/14/2023 [facility] of Occupat ional [facility] - Occupational Stress Questionnaire Answer Date [...] place to sleep or slept in a intermediate (including now)? No 05/14/2023 Comments Unknown Sex [...] on filedocumented in this encounter Care Teams Golf Course Patroller Relationship Specialty Start Date End Date Craig Villanueva MD [address] [facility] [address] [place] [address] PCP - General Internal Medicine 04/28/23 Craig Villanueva MD [address] [facility] 110 [place] [address] PCP - Pedro [place] 05/23/23 Blanche Joshi NP [address] [place] [address] Referring Physician 09/25/22FridayMelly LPN [address] [facility] [address] [place] [address] Licensed Practical Nurse Family Medicine 04/28/23 04/30/24 Hilaria Carrera RN [address] [place] [address] Licensed Practical Nurse Family Medicine 04/30/24 06/08/24 Leticia Palmer LPN [address] [facility] 110 [place] [address] 06/08/24 Amira Godoy, JORGE [address] [place] [address] [employer] Family Medicine 06/08/24 documented as of this encounter
--- OUTSIDE RECORDS SUMMARY | 2024-09-24 19:54 | XMS_ITS | CCD ---
Author Organization [facility] CliniSynv Care Team Providers Care Soil And Plant Scientist Name Role Phone ISABELL Rajan Primary Care Provider MD Alma Rosa Swartz Jr Attending Provider Blanche Kolb Unavailable ISABELL Rajan Attending Provider Blanche Rajan Primary Care Unavailable Alma Rosa Swartz Jr Admitting Unavailable Alma Rosa Swartz Jr Attending Unavailable Blanche Rajan Attending Unavailable Satinder, Blanche Admitting Unavailable Satinder, Blanche Primary Care Unavailable Satinder, Blanche Attending Unavailable Satinder, Blanche Admitting Unavailable Satinder, Blanche Primary Care Unavailable NO FAMILY, PHYSICIAN Primary Care Unavailable Blanche Rajan Attending Unavailable Satinder, Blanche Admitting Unavailable SATINDER, BLANCHE Primary Care Unavailable JASWANT ., DR TAMIKO Leonard Consulting Unavailable ASPENEREMelquiades, DR LUIGI Titus Admitting Unavailable ANIYAH, DR LUIGI Titus Attending Unavailable ANIYAH, DR LUIGI Titus Consulting Unavailable YADY AN Consulting Unavailable SERGEY HER Consulting Unavailable SHANIQUE JENSEN Consulting Unavailable ELISE SILVA Consulting Unavailable SATINDER, BLANCHE Admitting Unavailable SATINDER, BLANCHE Attending Unavailable SATINDER, BLANCHE Admitting Unavailable SATINDER, BLANCHE Attending Unavailable SATINDER, BLANCHE Consulting Unavailable SATINDER, BLANCHE Primary Care Unavailable ANGELES, DR MCMULLEN Admitting Unavailable ANGELES, DR MCMULLEN Attending Unavailable KELLIE .NOVA Consulting UnavailSERGEY Donis Consulting Unavailable SATINDER, BLANCHE Primary Care Unavailable NICHOLE HODGE Admitting Unavailable NICHOLE HODGE Attending Unavailable NICHOLE HODGE Consulting Unavailable KARISSA THOMSON Consulting Unavailable SATINDER, BLANCHE Primary Care Unavailable NICHOLE HODGE Admitting Unavailable NICHOLE HODGE Attending Unavailable DR LIBBY GOINS Consulting Unavailable NICHOLE HODGE Consulting Unavailable Pat Layne Unavailable Blanche Rajan MD Unavailable Craig Villanueva MD Primary Care Provider Guillermo SAMPLE PROCESSOR, Melly Unavailable Craig Villanueva MD Unavailable Satinder WILKERSON, Blanche Unavailable [phone] Palmer SAMPLE PROCESSOR, Elticia Unavailable Unavailable Jayne YARN DUMPER, Amira Unavailable CRAIG VILLANUEVA Attending Unavailable CRAIG VILLANUEVA Attending Unavailable CRAIG VILLANUEVA Attending Unavailable Allergies Allergy Classification Reported Allergen(s) Allergy Type Date of Onset Reaction(s) Facility (12 sources) Codeine; Translations: [codeine] Drug Allergy 1 Unknown Reaction [facility] (16 sources) Methocarbamol; Translations: [methocarbamol] Drug Allergy 1 Unknown [facility] (5 sources) Codeine Drug Allergy Unknown [employer] Other (1 source) Baclofen Drug Allergy [facility] Repository (1 source) Methocarbamol Drug Allergy 1 [facility] Rep[facility] Medications Current Medications Medication Drug Class(es) Dates Sig (Normalized) Sig (Original) acetaminophen 325 mg oral tablet (2 sources) Start: 07-27-2020 take 650 mg by mouth every six hours Acetaminophen Active 650 MG PO Q6H July 27, 2020 11:55am acetaminophen 325 mg / traMADol hydrochloride 37.5 mg oral tablet (7 sources) Opioid Agonist Start: 07-28-2020 End: 12-08-2023 take 0.5-1 tablets by mouth every six hours as needed for headache traMADol-Acetamino phen 37.5-325 MG 1/2 to 1 tablet as needed for neck or headache. Orally every 6 hrs for 3 days July, Active [id number] 200 actuat albuterol 0.09 mg/actuat metered dose inhaler (8 sources) beta2-Adrenergic Agonist Start: 04-25-2023 End: 04-24-2024 take 2 puff(s) by inhalation every four hours for wheezing albuterol HFA 90 mcg/act inhaler Indications: Panlobular emphysema (HCC) Inhale 2 puffs every 4 (four) hours if needed for wheezing 18 g 3 04/25/2023 Active amoxicillin 875 mg oral tablet (2 sources) Penicillin-class Antibacterial Start: 12-11-2021 take 1 tablet by mouth every twelve hours Amoxicillin 875 MG 1 tablet Orally every 12 hrs for 7 days Nov, Active baclofen 10 mg oral tablet (2 sources) gamma-Aminobutyric Acid-ergic Agonist Start: 02-21-2022 take 1 tablet by mouth every twelve hours Baclofen 10 MG 1 tablet with food or milk Orally Twice a day for 10 days Feb, Active cephalexin 500 mg oral capsule (5 sources) Cephalosporin Antibacterial Start: 07-27-2020 take 500 mg by mouth twice daily Cephalexin Active 500 MG PO Twice daily 8 July 27, 2020 11:06am Cephalexin Activ e donepezil hydrochloride 10 mg oral tablet (12 sources) Start: 09-02-2024 End: 09-02-2025 take 1 tablet by mouth at bedtime donepezil (Aricept) 10 MG tablet Indications: Moderate dementia with anxiety, unspecified dementia type (HCC) Take 1 tablet (10 mg) by mouth at bedtime 30 tablet 09/02/2024 09/02/2025 Active Start: 12-08-2023 End: 07-09-2025 take 1 tablet by mouth at bedtime donepezil (Aricept) 5 MG tablet Indications: Moderate dementia with anxiety, unspecified dementia type (HCC) Take 1 tablet (5 mg) by mouth at bedtime 30 tablet 07/09/2024 09/02/2024 Discontinued (Reorder) famotidine 20 mg oral tablet (2 sources) Histamine-2 Receptor Antagonist Start: 02-21-2022 take 1 tablet by mouth every twelve hours Famotidine 20 MG 1 tablet Orally Twice a day for 30 day(s) Feb, Active 24 hr ferrous sulfate 142 mg extended release oral tablet (7 sources) Start: 07-27-2020 Ferrous Sulfat e (Slow Fe) 142 mg (45 mg iron) tablet extended release Active 284 MG PO Every 48 hours July 27, 2020 11:07am Ferrous Sulfate Active hydrocortisone 10 mg/ml / neomycin 3.5 mg/ml / polymyxin b 05616 unt/ml otic solution (4 sources) Aminoglycoside Antibacterial, Polymyxin-class Antibacterial, Corticosteroid Start: 02-21-2022 Owcjsyud-Vzjlxwpjx-EM 3.5-27726-3 4 drops into affected ear Otic Three times a day for 7 day(s) Feb, Active Start: 12-11-2021 Neomycin-Polym yxin-HC 3.5-59914-4 4 drops into affected ear Otic Three times a day for 7 day(s) Nov, Active losartan potassium 25 mg oral tablet (17 sources) Angiotensin 2 Receptor Karime Start: 04-25-2023 take 1 tablet by mouth in the morning losartan (Cozaar) 25 MG tablet Indications: Hypertension, unspecified type Take 1 tablet (25 mg) by mouth in the morning. 100 tablet 3 04/25/2023 Active Start: 07-27-2020 take 50 mg by mouth once daily Losartan Active 50 MG PO Daily 60 July 27, 2020 10:08am Start: 07-24-2020 End: 07-27-2020 take 25 mg by mouth once daily Losartan Discontinued 2 5 MG PO Daily July 24, 2020 2:28pm July 27, 2020 11:08am take 2 tablets by [facility] every twenty-four hours Losartan Potassium 25 MG 2 tablet Oral Once a day for 90 day(s) Active omeprazole 20 mg delayed release oral tablet (2 sources) Proton Pump Inhibitor Start: 07-24-2020 take 20 mg by mouth once daily Omeprazole Active 20 MG PO Daily July 24, 2020 2:28pm oxybutynin chloride 5 mg oral tablet (14 sources) Cholinergic Muscarinic Antagonist Start: 08-23-2021 End: 12-09-2023 take 1 tablet by mouth once daily oxybutynin (Ditropan) 5 MG tablet Indications: Prolapse of urethra Take 1 tablet (5 mg) by mouth Daily 90 tablet 3 12/09/2023 Active pantoprazole 40 mg delayed release oral tablet (14 sources) Proton Pump Inhibitor Start: 04-28-2023 End: 12-08-2024 take 1 tablet by mouth once daily pantoprazole (ProtoNix) 40 MG EC tablet Indications: Hiatal hernia Take 1 tablet (40 mg) by mouth Daily 90 tablet 3 12/09/2023 12/08/2024 Active Start: 08-22-2020 take 1 tablet by xin th every twenty-four hours Protonix 40 MG 1 tablet Orally Once a day for 90 day(s) Aug, Active polyethylene glycol 3350 38970 mg powder for oral solution (7 sources) Osmotic Laxative Start: 07-27-2020 Polyethylene Glycol 3350 (Miralax) 17 gram/dose powder Active 8.5 GM PO Daily July 27, 2020 11:56am MiraLax Active Sennosides (Senokot) 8.6 mg tablet (2 sources) Start: 07-27-2020 take 1 tablet by mouth twice daily Sennosides (Senokot) 8.6 mg tablet Active 8.6 MG PO Twice daily July 27, 2020 11:55am Start: 07-27-2020 take 1 tablet by xin th twice daily Sennosides (Senokot) 8.6 mg tablet Active 8.6 MG PO Twice daily July 26, 2020 11:00pm sennosides, GROUP HOME (5 sources) Senokot Active triamcinolone acetonide 0.25 mg/ml topical cream (2 sources) Corticosteroid Start: 10-18-2022 End: 12-08-2023 triamcinolone (Kenalog) 0.025 % cream 10/18/2022 12/08/2023 Discontinued Problems Active Problems Problem Classification Problem Date Documented Da te Episodic/Chronic Abdominal pain (1 source) Unspecified abdominal pain; Translations: [UNSPECIFIED ABDOMINAL PAIN] Onset: 3 Episodic Chronic obstructive pulmonary disease and bronchiectasis (12 sources) Pulmonary emphysema; Translations: [Emphysema, unspecified] Onset: 3 11-07-2022 Chronic Deficiency and other anemia (2 sources) Microcytic anemia; Translations: [Iron deficiency anemia, unspecified] 07-27-2020 Episodic Delirium, dementia, and amnestic and other cognitive disorders (20 sources) Unspecified dementia without behavioral disturbance; Translations: [Dementia] Onset: 2 12-08-2023 Chronic E Codes: Fall (1 source) Fall on same level from slipping, tripping and stumbling with subsequent striking against unspecified object, initial encounter; Translations: [FALL SAME LVL SLIP STRK UNS OBJ INT] Onset: 3 Episodic Esophageal disorders (9 sources) Gastroesophageal reflux disease; Translations: [Gastro-esophageal reflux disease without esophagitis] Onset: 2 Resolved: 2 Chronic Essential hypertension (20 sources) Essential hypertension; Translations: [Essential (primary) hypertension] Onset: 2 Resolved: 2 Chronic Gastrointestinal hemorrhage (4 sources) Melena; Translations: [MELENA] Onset: 3 Episodic Genitourinary symptoms and ill-defined conditions (8 sources) Genuine stress incontinence; Translations: [Stress incontinence (female) (male)] Onset: 2 Resolved: 2 Chronic Malaise and fatigue (2 sources) Asthenia; Translations: [Weakness] 07-24-2020 Episodic Open wounds of head; neck; and trunk (4 sources) Laceration without foreign body of scalp, initial encounter; Translations: [LACERATION W/O FB SCALP INITIAL ENC] Onset: 3 Episodic Osteoarthritis (10 sources) Degenerative joint disease involving multiple joints; Translations: [Polyosteoarthritis, unspecified] Onset: 4 04-25-2023 Chronic Other aftercare (1 source) Other nursing home (current) drug therapy; Translations: [OTH HOUSING MANAGEMENT OFFICER CURRENT DRUG THERAPY] Onset: 3 Episodic Other aftercare (1 source) Encounter for removal of sutures Episodic Other connective tissue disease (2 sources) Recurrent falls ; Translations: [Repeated falls] 07-24-2020 Episodic Other ear and sense organ disorders (1 source) Impacted cerumen, right ear Episodic Other ear and sense organ disorders (1 source) Impacted cerumen, bilateral Episodic Other injuries and conditions due to external causes (1 source) Unspecified injury of head, initial encounter; Translations: [UNSPECIFIED INJURY HEAD INITIAL ENC] Onset: 3 Episodic Other lower respiratory disease (4 sources) Pleurodynia; Translations: [Pleurodynia] Onset: 2 Resolved: 2 Episodic Other nutritional; endocrine; and metabolic disorders (2 sources) Weight decreased; Translations: [Abnormal weight loss] 09-02-2024 Episodic Otitis media and related conditions (1 source) Otitis media, unspecified, right ear Episodic Residual codes; unclassified (6 sources) Urinary catheter in situ; Translations: [Presence of other specified devices] Onset: 5 07-09-2024 Episodic Spondylosis; intervertebral disc disorders; other back problems (15 sources) Pain in cervical spine; Translations: [Cervical disc disorder, unspecified, unspecified cervical region] Onset: 4 04-25-2023 Chronic Thyroid disorders (20 sources) Goiter; Translations: [Nontoxic goiter, unspecified] Onset: 3 Resolved: 3 10-15-2022 Chronic Thyroid disorders (2 sources) Disorder of thyroid gland; Translations: [Disorder of thyroid, unspecified] 07-26-2020 Episodic Unclassified (1 source) R07.81 - Pleurodynia; Translations: [R07.81 - Pleurodynia] Onset: 2 Unclassified (1 source) E04.1 - Nontoxic single thyroid nodule; Translations: [E04.1 - Nontoxic single thyroid nodule] Onset: 2 Unclassified (1 source) CONTACT W/AND (SUSP) EXPOS COVID-19; Translations: [CONTACT W/AND (SUSP) EXPOS COVID-19] Onset: 2 Past or Other Problems Problem Classification Problem Date Documented Date Episodic/Chronic Abdominal hernia (9 sources) Hiatal hernia; Translations: [Diaphragmatic hernia without obstruction or gangrene] Onset: 10-15-2022 10-15-2022 Episodic Deficiency and other anemia (8 sources) Iron deficiency anemia; Translations: [Iron deficiency anemia, unspecified] Onset: 10-15-2022 10-15-2022 Episodic Deficiency and other anemia (8 sources) Anemia; Translations: [Anemia, unspecified] Onset: 04-24-2023 04-24-2023 Episodic E Codes: Adverse effects of medical drugs (1 source) Adverse effect of antiparkinsonism drugs and other central muscle-tone depressants, initial encounter; Translations: [ADVRS EFF APK RX CNTRL MT DEPR INIT] Onset: 03-14-2022 Episodic Genitourinary symptoms and ill-defined conditions (17 sources) Incomplete emptying of bladder; Translations: [Retention of urine, unspecified] Onset: 04-24-2023 04-24-2023 Episodic Headache; including migraine (8 sources) Headache; Translations: [Headache] Onset: 04-24-2023 04-24-2023 Episodic Immunizations and screening for infectious disease (1 source) Encounter for immunization; Translations: [ENCOUNTER FOR IMMUNIZATION] Onset: 03-14-2022 Episodic Nutritional deficiencies (1 source) Cachexia; Translations: [CACHEXIA] Onset: 03-14-2022 Episodic Other connective tissue disease (3 sources) Pain in right toe(s); Translations: [PAIN IN RIGHT TOES] Onset: 03-20-2022 Episodic Other diseases of bladder and urethra (11 sources) Prolapse of urethra; Translations: [Other specified disorders of urethra] Onset: 04-24-2023 04-24-2023 Episodic Other diseases of kidney and ureters (10 sources) Hydronephrosis; Translations: [Unspecified hydronephrosis] Onset: 10-15-2022 07-26-2020 Episodic Other nervous system disorders (10 sources) Abnormal gait; Translations: [Unsteadiness on feet] Onset: 04-25-2023 04-25-2023 Episodic Other non-traumatic joint disorders (2 sources) Pain in right hip; Translations: [M25.551 - Pain in right hip] Onset: 08-23-2021 Resolved: 08-23-2021 Episodic Other nutritional; endocrine; and metabolic disorders (8 sources) Body mass index 25-29 - overweight; Translations: [Overweight] Onset: 04-24-2023 Resolved: 07-09-2024 04-24-2023 Episodic Residual codes; unclassified (4 sources) Altered mental status, unspecified; Translations: [ALTERED MENTAL STATUS UNSPECIFIED] Onset: 03-08-2022 Episodic Residual codes; unclassified (1 source) Body mass index (BMI) 20.0-20.9, adult; Translations: [BODY MASS INDEX BMI 20.0-20.9 ADULT] Onset: 03-14-2022 Episodic Skin and subcutaneous tissue infections (1 source) Cellulitis of right toe; Translations: [CELLULITIS OF RIGHT TOE] Onset: 03-21-2022 Episodic Urinary tract infections (20 sources) Urinary tract infectious disease; Translations: [Urinary tract infection, site not specified] Onset: 11-07-2022 07-24-2020 Episodic Results Test Name Value Interpretation Reference Range Facility CT CSPINE WO CONon CT CSPINE WO CON EXAMINATION: CT CSPINE WO CON HISTORY: UNSPECIFIED INJURY OF HEAD, INITIAL ENCOUNTER ; fall, forehead laceration COMPARISON: No relevant comparison available. TECHNIQUE: Axial, Coronal, and Sagittal images were created without IV contrast. Dose reduction techniques were achieved by using automated exposure control and/or adjustment of mA and/or kV according to patient size and/or use of iterative reconstruction technique. FINDINGS: VERTEBRAL BODIES: No fracture or bone lesion. Minimal grade 1 anterolisthesis of C5 in relation to C4 and C6. Right convex curvature of the cervical spine. FACET JOINTS: Multilevel marked degenerative facet arthropathy, greatest on left side. No fracture or facet joint widening. CERVICAL DISCS: Marked narrowing C4-5. Multilevel moderate narrowing with posterior disc-osteophyte complexes causing uddp-em-tnuywque central canal narrowing, left greater than right. CENTRAL CANAL: No evidence of hemorrhage. PARASPINAL AREA: Heterogeneous thyroid gland; no definable mass. IMPRESSION: 1. No appreciable acute abnormality. 2. Marked degenerative changes of cervical spine. Electronically authenticated by: LIBBY GOINS Date: 2022-07-16 12:29 Normal [facility] CT HEAD WO CONon 07-16-2022 CT HEAD WO CON EXAMINATION: CT HEAD WO CON HISTORY: UNSPECIFIED INJURY OF HEAD, INITIAL ENCOUNTER ; fall, forehead laceration COMPARISON: CT head 03/08/2022 TECHNIQUE: Axial CT images were obtained without IV contrast. Dose reduction techniques were achieved by using automated exposure control and/or adjustment of mA and/or kV according to patient size and/or use of iterative reconstruction technique. FINDINGS: BRAIN: No edema, hemorrhage, mass, acute infarction, or inappropriate atrophy. CSF SPACES: No hydrocephalus, subarachnoid hemorrhage, or mass. Appropriate for age. SKULL: No fracture, mass, or other significant visible lesion. SINUSES: No significant mucosal thickening or fluid on the limited views. ORBITS: No appreciable abnormality on the limited views. OTHER: Skin surface laceration over the midline forehead/anterior scalp; no radiopaque foreign body. IMPRESSION: 1. No intracranial hemorrhage or acute abnormality of the brain. 2. Age consistent atrophy and chronic small vessel ischemic changes. 3. Anterior scalp skin laceration. No radiopaque foreign body or bone involvement. Electronically authenticated by: LIBBY GOINS Date: 2022-07-16 12:22 Normal [facility] AMYLASEon 07-07-2022 Amylase [Catalytic activity/Vol] 75 U/L Normal 25-115 [facility] Comment on above: Performed By: #### M ALBCRL #### [facility] [address] [place] [address] Dr. Jesi Rm CBC AUTO DIFFon 07-07-2022 BASO # 0.1 103/ul Normal 0.0-0.1 [facility] Comment on above: Performed By: #### C BC #### [facility] [address] [place] [address] Dr. Jesi Rm Basophils/100 WBC (Bld) 0.9 % Normal 0.2-2.0 [facility] Comment on above: Performed By: #### C BC #### [facility] [address] [place] [address] Dr. Jesi Rm EO # 0.1 103/ul Normal 0.0-0.7 [facility] Comment on above: Performed By: #### C BC #### [facility] [address] [place] [address] Dr. Jesi Rm Eosinophils/100 WBC (Bld) 1.1 % Normal 0.9-7.0 [facility] Comment on above: Performed By: #### C BC #### [facility] [address] [place] [address] Dr. Jesi Rm Erythrocyte distribution width (RBC) [Ratio] 14.0 % Normal 11.0-15.0 [facility] Comment on above: Performed By: #### C BC #### [facility] [address] [place] [address] Dr. Jesi Rm Hematocrit (Bld) [Volume fraction] 40.9 % Normal 36.0-48.0 [facility] Comment on above: Performed By: #### C BC #### [facility] [address] [place] [address] Dr. Jesi Rm Hemoglobin (Bld) [Mass/Vol] 13.4 g/dL Normal 12.0-16.0 [facility] Comment on above: Performed By: #### C BC #### [facility] [address] [place] [address] Dr. Jesi Rm IG # 0.02 10e3/ul Normal 0.00-0.03 [facility] Comment on above: Performed By: #### C BC #### [facility] [address] [place] [address] Dr. Jesi Rm IG % 0.4 % Normal 0.0-0.5 [facility] Comment on above: Performed By: #### C BC #### [facility] [address] [place] [address] Dr. Jesi Rm LYMPH # 1.5 103/ul Normal 1.2-3.8 [facility] Comment on above: Performed By: #### C BC #### [facility] [address] [place] [address] Dr. Jesi Rm Lymphocytes/100 WBC (Bld) 26.8 % Normal 20.5-60.0 [facility] Comment on above: Performed By: #### C BC #### [facility] [address] [place] [address] Dr. Jesi Rm MANUAL DIFF REQ NO Normal [facility] Comment on above: Performed By: #### C BC #### [facility] [address] [place] [address] Dr. Jesi Rm MCH (RBC) [Entitic mass] 27.7 pg Normal 26.7-34.0 [facility] Comment on above: Performed By: #### C BC #### [facility] [address] [place] [address] Dr. Jesi Rm MCHC (RBC) [Mass/Vol] 32.8 g/dL Normal 29.9-35.2 [facility] Comment on above: Performed By: #### C BC #### [facility] [address] [place] [address] Dr. Jesi Rm MCV (RBC) [Entitic vol] 84.7 fL Normal 81.0-99.0 [facility] Comment on above: Performed By: #### C BC #### [facility] [address] [place] [address] Dr. Jesi Rm MONO # 0.6 103/ul Normal 0.3-0.8 [facility] Comment on above: Performed By: #### C BC #### [facility] [address] [place] [address] Dr. Jesi Rm Monocytes/100 WBC (Bld) 10.2 % Normal 1.7-12.0 [facility] Comment on above: Performed By: #### C BC #### [facility] [address] [place] [address] Dr. Jesi Rm NEUT # 3.4 103/ul Normal 1.4-6.5 [facility] Comment on above: Performed By: #### C BC #### [facility] [address] [place] [address] Dr. Jesi Rm Neutrophils/100 WBC (Bld) 60.6 % Normal 43.0-75.0 [facility] Comment on above: Performed By: #### C BC #### [facility] [address] [place] [address] Dr. Jesi Rm Platelet mean volume (Bld) [Entitic vol] 8.8 fL Critically low 9.5-13.5 [facility] Comment on above: Performed By: #### C BC #### [facility] [address] [place] [address] Dr. Jesi Rm PLT 337 103/ul Normal 150-450 [facility] Comment on above: Performed By: #### C BC #### [facility] [address] [place] [address] Dr. Jesi Rm RBC 4.83 106/ul Normal 4.20-5.40 [facility] Comment on above: Performed By: #### C BC #### [facility] [address] [place] [address] Dr. Jesi Rm WBC 5.6 103/ul Normal 4.0-11.0 [facility] Comment on above: Performed By: #### C BC #### [facility] [address] ABD/PELVIS WO CONon 07-07 CT ABD/PELVIS WO CON EXAM: CT ABD/PELVIS WO CON HISTORY: UNSPECIFIED ABDOMINAL PAIN woke up to bowel movement but only blood came out. Dark and hard stool. COMPARISON: None. TECHNIQUE: Axial CT imaging was performed through the abdomen and pelvis without intravenous contrast. Multiplanar reformats were performed. Dose reduction techniques were achieved by using automated exposure control and/or adjustment of mA and/or kV according to patient size and/or use of iterative reconstruction technique. FINDINGS: Lung bases: Lung bases are clear. No pleural effusion. GI upper: Moderate to large hiatal hernia. Small moderate duodenal diverticulum. Liver: Normal size and contour. Gallbladder: No significant abnormality. No cholelithiasis. Biliary system: No intra or extrahepatic biliary ductal dilatation. Spleen: Normal size. Pancreas: Unremarkable. Adrenal glands: Normal adrenal glands. Kidneys/ureters: Normal contours. No hydronephrosis or ureterolithiasis. No nephrolithiasis. Vessels: No aneurysmal dilatation of the aorta. Atherosclerotic disease is noted. Lymph Nodes: No lymphadenopathy. Small bowel: No wall thickening or dilatation. Colon: No dilatation. Colonic diverticulosis. Appendix: No findings of appendicitis. Peritoneal cavity: No free fluid or peritoneum. Lower : Hysterectomy. The bladder is not well distended which limits evaluation; no significant abnormality demonstrated. Bones: Severe dextroscoliotic curvature of the lumbar spine. No acute bony abnormality. Mild/moderate spondylosis of the lower lumbar spine. Soft tissues: No acute finding. Additional findings: None. IMPRESSION: 1. No evidence of acute intra-abdominal abnormality on noncontrast examination. No CT finding to explain patient's symptoms. Further evaluation should be considered on clinical grounds, especially if symptoms persist. 2. Diverticulosis without evidence of diverticulitis. 3. Please see above for additional findings. Electronically authenticated by: KARISSA THOMSON Date: 2022-07-07 05:37 Normal [facility] LIPASEon 07-07-2022 Lipase [Catalytic activity/Vol] 152.0 U/L Normal 73.0-393.0 [facility] Comment on above: Performed By: #### M ALBCRL #### [facility] [address] [address] [address] Jesi Rm OCC BLD IMMUNO SCREENon 06-22 OCCULT BLOOD Negative Normal NEGATIVE [facility] Comment on above: Performed By: #### O BSCRN #### [facility] [address] [address] [address] Jesi Rm PROF 14(COMP METB)on 023 Albumin [Mass/Vol] 3.6 g/dL Normal 3.4-5.0 [facility] Comment on above: Performed By: #### M ALBCRL #### [facility] [address] [address] [address] Jesi Rm Albumin/Globulin [Mass ratio] 0.9 {ratio} Normal [facility] Comment on above: Performed By: #### M ALBCRL #### [facility] [address] [place] [address] Dr. Jesi Rm ALP [Catalytic activity/Vol] 52 U/L Normal 46-116 [facility] Comment on above: Performed By: #### M ALBCRL #### [facility] [address] [address] [address] Jesi Rm ALT [Catalytic activity/Vol] 15 U/L Normal 14-59 [facility] Comment on above: Performed By: #### M ALBCRL #### [facility] [address] [address] [address] Jesi Rm Anion gap [Moles/Vol] 8.0 mmol/L Normal [facility] Comment on above: Performed By: #### M ALBCRL #### [facility] [address] [address] [address] Jesi Rm AST [Catalytic activity/Vol] 14 U/L Critically low 15-37 [facility] Comment on above: Performed By: #### M ALBCRL #### [facility] [address] [address] [address] Jesi Rm Bilirubin [Mass/Vol] 0.4 mg/dL Normal 0.2-1.0 [facility] Comment on above: Performed By: #### M ALBCRL #### [facility] [address] [address] [address] Jesi Rm Calcium [Mass/Vol] 9.4 mg/dL Normal 8.5-10.1 [facility] Comment on above: Performed By: #### M ALBCRL #### [facility] [address] [address] [address] Jesi Rm Chloride [Moles/Vol] 103 mmol/L Normal 98-107 [facility] Comment on above: Performed By: #### M ALBCRL #### [facility] [address] [address] [address] Jesi Rm CO2 [Moles/Vol] 29.7 mmol/L Normal 21.0-32.0 [facility] Comment on above: Performed By: #### M ALBCRL #### [facility] [address] [place] [address] Dr. Jesi Rm Creatinine [Mass/Vol] 0.80 mg/dL Normal 0.55-1.02 [facility] Comment on above: Performed By: #### M ALBCRL #### [facility] [address] [address] [address] Jesi Rm EGFR-AF SOMALI >60 Normal >=60 [facility] Comment on above: Performed By: #### M ALBCRL #### [facility] [address] [place] [address] Dr. Jesi Rm EGFR-NON AF SOMALI >60 Normal >=60 [facility] Comment on above: Performed By: #### M ALBCRL #### [facility] [address] [address] [address] Jesi Rm Globulin (S) [Mass/Vol] 3.8 g/dL Normal [facility] Comment on above: Performed By: #### M ALBCRL #### [facility] [address] [place] [address] Dr. Jesi Rm Glucose [Mass/Vol] 101 mg/dL Normal 74-106 [facility] Comment on above: Performed By: #### M ALBCRL #### [facility] [address] [place] [address] Dr. Jesi Rm Potassium [Moles/Vol] 3.7 mmol/L Normal 3.5-5.1 [facility] Comment on above: Performed By: #### M ALBCRL #### [facility] [address] [place] [address] Dr. Jesi Rm Protein [Mass/Vol] 7.4 g/dL Normal 6.4-8.2 [facility] Comment on above: Performed By: #### M ALBCRL #### [facility] [address] [place] [address] Dr. Jesi Rm Sodium [Moles/Vol] 137 mmol/L Normal 136-145 [facility] Comment on above: Performed By: #### M ALBCRL #### [facility] [address] [place] [address] Dr. Jesi Rm Urea nitrogen [Mass/Vol] 17.0 mg/dL Normal 7.0-18.0 [facility] Comment on above: Performed By: #### M ALBCRL #### [facility] [address] [place] [address] Dr. Jesi Rm Urea nitrogen/Creatinine [Mass ratio] 21.2 mg/mg Normal [facility] Comment on above: Performed By: #### M ALBCRL #### [facility] [address] [place] [address] Dr. Jesi Rm CBC AUTO DIFFon 03-20-2022 BASO # 0.1 103/ul Normal 0.0-0.1 [facility] Comment on above: Performed By: #### C BC #### [facility] [address] [place] [address] Dr. Jesi Rm Basophils/100 WBC (Bld) 0.8 % Normal 0.2-2.0 [facility] Comment on above: Performed By: #### C BC #### [facility] [address] [place] [address] Dr. Jesi Rm EO # 0.0 103/ul Normal 0.0-0.7 [facility] Comment on above: Performed By: #### C BC #### [facility] [address] [place] [address] Dr. Jesi Rm Eosinophils/100 WBC (Bld) 0.6 % Critically low 0.9-7.0 [facility] Comment on above: Performed By: #### C BC #### [facility] [address] [place] [address] Dr. Jesi Rm Erythrocyte distribution width (RBC) [Ratio] 13.7 % Normal 11.0-15.0 [facility] Comment on above: Performed By: #### C BC #### [facility] [address] [place] [address] Dr. Jesi Rm Hematocrit (Bld) [Volume fraction] 38.4 % Normal 36.0-48.0 [facility] Comment on above: Performed By: #### C BC #### [facility] [address] [place] [address] Dr. Jesi Rm Hemoglobin (Bld) [Mass/Vol] 12.5 g/dL Normal 12.0-16.0 [facility] Comment on above: Performed By: #### C BC #### [facility] [address] [place] [address] Dr. Jesi Rm IG # 0.02 10e3/ul Normal 0.00-0.03 [facility] Comment on above: Performed By: #### C BC #### [facility] [address] [place] [address] Dr. Jesi Rm IG % 0.3 % Normal 0.0-0.5 [facility] Comment on above: Performed By: #### C BC #### [facility] [address] [place] [address] Dr. Jesi Rm LYMPH # 1.6 103/ul Normal 1.2-3.8 [facility] Comment on above: Performed By: #### C BC #### [facility] [address] [place] [address] Dr. Jesi mR Lymphocytes/100 WBC (Bld) 22.4 % Normal 20.5-60.0 [facility] Comment on above: Performed By: #### C BC #### [facility] [address] [place] [address] Dr. Jesi Rm MANUAL DIFF REQ NO Normal [facility] Comment on above: Performed By: #### C BC #### [facility] [address] [place] [address] Dr. Jesi Rm MCH (RBC) [Entitic mass] 28.0 pg Normal 26.7-34.0 [facility] Comment on above: Performed By: #### C BC #### [facility] [address] [place] [address] Dr. Jesi Rm MCHC (RBC) [Mass/Vol] 32.6 g/dL Normal 29.9-35.2 [facility] Comment on above: Performed By: #### C BC #### [facility] [address] [place] [address] Dr. Jesi Rm MCV (RBC) [Entitic vol] 85.9 fL Normal 81.0-99.0 [facility] Comment on above: Performed By: #### C BC #### [facility] [address] [place] [address] Dr. Jesi Rm MONO # 0.7 103/ul Normal 0.3-0.8 [facility] Comment on above: Performed By: #### C BC #### [facility] [address] [place] [address] Dr. Jesi Rm Monocytes/100 WBC (Bld) 9.8 % Normal 1.7-12.0 [facility] Comment on above: Performed By: #### C BC #### [facility] [address] [place] [address] Dr. Jesi Rm NEUT # 4.8 103/ul Normal 1.4-6.5 [facility] Comment on above: Performed By: #### C BC #### [facility] [address] [place] [address] Dr. Jesi Rm Neutrophils/100 WBC (Bld) 66.1 % Normal 43.0-75.0 [facility] Comment on above: Performed By: #### C BC #### [facility] [address] [address] [address] Jesi Rm Platelet mean volume (Bld) [Entitic vol] 8.8 fL Critically low 9.5-13.5 [facility] Comment on above: Performed By: #### C BC #### [facility] [address] [address] [address] Jesi Rm PLT 307 103/ul Normal 150-450 [facility] Comment on above: Performed By: #### C BC #### [facility] [address] [place] [address] Dr. Jesi Rm RBC 4.47 106/ul Normal 4.20-5.40 [facility] Comment on above: Performed By: #### C BC #### [facility] [address] [place] [address] Dr. Jesi Rm WBC 7.2 103/ul Normal 4.0-11.0 [facility] Comment on above: Performed By: #### C BC #### [facility] [address] [place] [address] Dr. Jesi Rm CRPon 03-20-2022 CRP 0.9 mg/dL Normal <=1.0 [facility] Comment on above: Performed By: #### C BC #### [facility] [address] [place] [address] Dr. Jesi Rm PROF CHEM 8 (BAS METB)on Anion gap [Moles/Vol] 9.8 mmol/L Normal [facility] Comment on above: Performed By: #### C BC #### [facility] [address] [place] [address] Dr. Jesi Rm Calcium [Mass/Vol] 9.1 mg/dL Normal 8.5-10.1 [facility] Comment on above: Performed By: #### C BC #### [facility] [address] [place] [address] Dr. Jesi Rm Chloride [Moles/Vol] 102 mmol/L Normal 98-107 [facility] Comment on above: Performed By: #### C BC #### [facility] [address] [place] [address] Dr. Jesi Rm CO2 [Moles/Vol] 27.6 mmol/L Normal 21.0-32.0 [facility] Comment on above: Performed By: #### C BC #### [facility] [address] [address] [address] Jesi Rm Creatinine [Mass/Vol] 0.82 mg/dL Normal 0.55-1.02 [facility] Comment on above: Performed By: #### C BC #### [facility] [address] [address] [address] Jesi Rm EGFR-AF SOMALI >60 Normal >=60 [facility] Comment on above: Performed By: #### C BC #### [facility] [address] [place] [address] Dr. Jesi Rm EGFR-NON AF SOMALI >60 Normal >=60 [facility] Comment on above: Performed By: #### C BC #### [facility] [address] [address] [address] Jesi Rm Glucose [Mass/Vol] 111 mg/dL Critically high 74-106 [facility] Comment on above: Performed By: #### C BC #### [facility] [address] [address] [address] Jesi Rm Potassium [Moles/Vol] 3.4 mmol/L Critically low 3.5-5.1 [facility] Comment on above: Performed By: #### C BC #### [facility] [address] [address] [address] Jesi Rm Sodium [Moles/Vol] 136 mmol/L Normal 136-145 [facility] Comment on above: Performed By: #### C BC #### [facility] [address] [place] [address] Dr. Jesi Rm Urea nitrogen [Mass/Vol] 9.0 mg/dL Normal 7.0-18.0 [facility] Comment on above: Performed By: #### C BC #### [facility] [address] [place] [address] Dr. Jesi Rm Urea nitrogen/Creatinine [Mass ratio] 11.0 mg/mg Normal [facility] Comment on above: Performed By: #### C BC #### [facility] [address] [place] [address] Dr. Jesi Rm SED RATE WESTERGRENon 2021 SED RATE 26 mm/hr Normal <=30 [facility] Comment on above: Performed By: #### S EDR #### [facility] [address] [place] [address] Dr. Jesi Rm URIC ACID SERUMon 03-20-2022 Urate [Mass/Vol] 3.9 mg/dL Normal 2.6-6.0 [facility] Comment on above: Performed By: #### C BC #### [facility] [address] [place] [address] Dr. Jesi Rm XR FOOT RT MIN 3 VIEWSon XR FOOT RT MIN 3 VIEWS EXAM: XR FOOT RT MIN 3 VIEWS HISTORY: Foot pain COMPARISON: None. TECHNIQUE: 3 views FINDINGS: No fracture, dislocation, subluxation or osseous lesion. Joint spaces are unremarkable for patient's age. Hammertoe deformity of the second third and questionably the fourth digits. Postoperative changes of the medial malleolus No gross soft tissue edema. IMPRESSION: No osseous abnormality or radiographic evidence of osteomyelitis. Electronically authenticated by: SERGEY BARNES Date: 2022-03-20 15:44 Normal [facility] MRI BRAIN WO CONon 2 MRI BRAIN WO CON EXAM: MRI BRAIN WO CON HISTORY: Altered mental status COMPARISON: Head CT 03/08/2022 TECHNIQUE: Multiplanar, multisequence MR imaging head was performed without intravenous contrast. FINDINGS: There is a 5 x 7 mm focus of increased diffusion signal with intermediate to decreased ADC signal seen within the midbrain to the left and right of midline in the region of the cerebral aqueduct on image 36 of the diffusion series with no corresponding T2/FLAIR signal abnormality. No acute hemorrhage or mass effect. There is moderate cerebral atrophy with concordant prominence of the ventricles. Moderate patchy areas of increased FLAIR signal are seen within the subcortical and periventricular white matter Expected flow voids are seen within the intracranial internal carotid, vertebral and basilar arteries. The cerebellopontine angles and internal auditory canals are unremarkable. The pituitary gland and midline structures are unremarkable. Bone marrow signal is within normal levels. Orbits and globes are unremarkable. There has been bilateral cataract eye surgery. Expected signal voids are seen within the paranasal sinuses and mastoid air cells. IMPRESSION: 1. Moderate atrophy and chronic small vessel ischemic changes of the supratentorial white matter 2. There is a small focus of increased diffusion signal within the midbrain on a single image only with no corresponding T2/FLAIR signal abnormality, favored to reflect artifact. An acute to subacute lacunar infarct in this region cannot be excluded. Electronically authenticated by: SERGEY HER Date: 2022-03-09 14:56 Normal [facility] CBC AUTO DIFFon 03-08-2022 BASO # 0.1 103/ul Normal 0.0-0.1 [facility] Comment on above: Performed By: #### C BC #### [facility] [address] [place] [address] Dr. Jesi Rm Basophils/100 WBC (Bld) 1.0 % Normal 0.2-2.0 [facility] Comment on above: Performed By: #### C BC #### [facility] [address] [place] [address] Dr. Jesi Rm EO # 0.0 103/ul Normal 0.0-0.7 [facility] Comment on above: Performed By: #### C BC #### [facility] [address] [place] [address] Dr. Jesi Rm Eosinophils/100 WBC (Bld) 0.2 % Critically low 0.9-7.0 [facility] Comment on above: Performed By: #### C BC #### [facility] [address] [place] [address] Dr. Jesi Rm Erythrocyte distribution width (RBC) [Ratio] 13.6 % Normal 11.0-15.0 [facility] Comment on above: Performed By: #### C BC #### [facility] [address] [place] [address] Dr. Jesi Rm Hematocrit (Bld) [Volume fraction] 38.4 % Normal 36.0-48.0 [facility] Comment on above: Performed By: #### C BC #### [facility] [address] [place] [address] Dr. Jesi Rm Hemoglobin (Bld) [Mass/Vol] 12.7 g/dL Normal 12.0-16.0 [facility] Comment on above: Performed By: #### C BC #### [facility] [address] [place] [address] Dr. Jesi Rm IG # 0.01 10e3/ul Normal 0.00-0.03 [facility] Comment on above: Performed By: #### C BC #### [facility] [address] [place] [address] Dr. Jesi Rm IG % 0.2 % Normal 0.0-0.5 [facility] Comment on above: Performed By: #### C BC #### [facility] [address] [place] [address] Dr. Jesi Rm LYMPH # 1.5 103/ul Normal 1.2-3.8 [facility] Comment on above: Performed By: #### C BC #### [facility] [address] [place] [address] Dr. Jesi Rm Lymphocytes/100 WBC (Bld) 30.2 % Normal 20.5-60.0 [facility] Comment on above: Performed By: #### C BC #### [facility] [address] [place] [address] Dr. Jesi Rm MANUAL DIFF REQ NO Normal [facility] Comment on above: Performed By: #### C BC #### [facility] [address] [place] [address] Dr. Jesi Rm MCH (RBC) [Entitic mass] 28.2 pg Normal 26.7-34.0 [facility] Comment on above: Performed By: #### C BC #### [facility] [address] [place] [address] Dr. Jesi Rm MCHC (RBC) [Mass/Vol] 33.1 g/dL Normal 29.9-35.2 [facility] Comment on above: Performed By: #### C BC #### [facility] [address] [place] [address] Dr. Jesi Rm MCV (RBC) [Entitic vol] 85.1 fL Normal 81.0-99.0 [facility] Comment on above: Performed By: #### C BC #### [facility] [address] [place] [address] Dr. Jesi Rm MONO # 0.3 103/ul Normal 0.3-0.8 [facility] Comment on above: Performed By: #### C BC #### [facility] [address] [place] [address] Dr. Jesi Rm Monocytes/100 WBC (Bld) 6.1 % Normal 1.7-12.0 [facility] Comment on above: Performed By: #### C BC #### [facility] [address] [place] [address] Dr. Jesi Rm NEUT # 3.1 103/ul Normal 1.4-6.5 [facility] Comment on above: Performed By: #### C BC #### [facility] [address] [place] [address] Dr. Jesi Rm Neutrophils/100 WBC (Bld) 62.3 % Normal 43.0-75.0 [facility] Comment on above: Performed By: #### C BC #### [facility] [address] [place] [address] Dr. Jesi Rm Platelet mean volume (Bld) [Entitic vol] 8.6 fL Critically low 9.5-13.5 [facility] Comment on above: Performed By: #### C BC #### [facility] [address] [place] [address] Dr. Jesi Rm PLT 298 103/ul Normal 150-450 [facility] Comment on above: Performed By: #### C BC #### [facility] [address] [place] [address] Dr. Jesi Rm RBC 4.51 106/ul Normal 4.20-5.40 [facility] Comment on above: Performed By: #### C BC #### [facility] [address] [place] [address] Dr. Jesi Rm WBC 4.9 103/ul Normal 4.0-11.0 [facility] Comment on above: Performed By: #### C BC #### [facility] [address] [place], [place] [address] Dr. Jesi Rm CRPon 03-08-2022 CRP [Mass/Vol] mg/L Normal <=1.0 [facility] Comment on above: Performed By: #### C BC #### [facility] [address] [place], [place] [address] HEAD WO CONon 03-08-2022 CT HEAD WO CON EXAM: CT HEAD WO CON CLINICAL INDICATION: Altered mental status COMPARISON: None TECHNIQUE: Axial CT images of the brain were obtained without contrast. Dose reduction techniques were achieved by using automated exposure control and/or adjustment of mA and/or kV according to patient size and/or use of iterative reconstruction technique. FINDINGS: Brain parenchyma: No mass effect or midline shift is seen. Feliciano-white differentiation is maintained. No findings suspicious for intracranial hemorrhage. No findings suggesting acute stroke. Periventricular hypoattenuation / patchy white matter hypodensities are statistically most often related to small vessel ischemic disease. Ventricles and extra-axial spaces: Ventricles are concordant with sulci. No findings suggesting hydrocephalus. Visualized paranasal sinuses: No findings suggesting acute sinusitis. Mastoid air cells: Clear. Included portions of the orbits:Included portions of the orbits with no evidence of fracture or other acute pathology. Bones: No fracture is seen. Impression: 1. No acute intracranial process visualized. 2. Age-appropriate cerebral volume loss with mild chronic small vessel ischemic disease. No findings suspicious for acute stroke by noncontrast head CT. If there is high suspicion for acute intracranial pathology, please note that magnetic resonance imaging or other additional evaluation may be more sensitive than noncontrast head CT. Electronically authenticated by: SHANIQUE JENSEN Date: 2022-03-08 01:28 Normal [facility] CULTURE BLOODon 03-08-2022 Microscopic examination of blood, culture Culture Observations: NO GROWTH AT 5 DAYS. Normal [facility] Comment on above: Performed By: #### C BC #### [facility] [address] [place], [place] [address] Dr. Jesi Rm Covid-19 PCR (CVDTBH)on 02-21 SARS-CoV-2 (COVID-19) RNA ROSELYN+probe Ql (Unsp spec) Not detected Normal NOT DETECTED [facility] Comment on above: Result Comment: When diagnostic testing is negative, the possibility of a false negative should be considered in the context of a patient's recent exposures and the presence of clinical signs and symptoms consistent with SARS-CoV-2. This test is not yet approved or cleared by the [place] FDA. When there are no FDA-approved or cleared tests available, and other criteria are met, FDA can make tests available under an emergency access mechanism called an Emergency Use Authorization (EUA). The EUA for this test is supported by the [employer] Custodian of Health and Human Service's declaration that circumstances exist to justify the emergency use of in vitro diagnostics for the detection and/or diagnosis of the virus that causes COVID-19. This EUA will remain in effect for the duration of the COVID-19 declaration justifying emergency of IVDs, unless it is terminated or revoked by the FDA (after which the test may no longer be used). Performed By: #### M ALBCRL #### [facility] [address] [place] [address] Dr. Jesi Rm DRUG SCREEN RAPID (URINE)on 03-08-2022 AMP Negative Normal NEGATIVE [facility] Comment on above: Performed By: #### D RUGRPD #### [facility] [address] [place] [address] Dr. Jesi Rm BAR Negative Normal NEGATIVE [facility] Comment on above: Performed By: #### D RUGRPD #### [facility] [address] [place] [address] Dr. Jesi Rm BUP Negative Normal NEGATIVE [facility] Comment on above: Performed By: #### D RUGRPD #### [facility] [address] [place] [address] Dr. Jesi Rm BZO Negative Normal NEGATIVE [facility] Comment on above: Performed By: #### D RUGRPD #### [facility] [address] [place] [address] Dr. Jesi Rm BRYANNA Negative Normal NEGATIVE [facility] Comment on above: Performed By: #### D RUGRPD #### [facility] [address] [place] [address] Dr. Jesi Rm CUT-OFFS SEE BELOW Normal [facility] Comment on above: Result Comment: AMP (Amphetamine): 500ng/mL, BAR (Barbituates): 200 ng/mL, BZO (Benzodiazepines): 150 ng/mL, BUP (Buprenorphine): 10 ng/mL, BRYANNA (Cocaine): 150 ng/mL, mAMP (Methamphetamine): 500 ng/mL, MTD (Methadone): 200 ng/mL, OPI (Opiates): 100 ng/mL, OXY (Oxycodone): 100 ng/mL, PCP (Phencyclidine): 25 ng/mL, PPX (Propoxyphene): 300 ng/mL, THC (Cannabinoids): 50 ng/mL, TCA (Trycyclic Antidepressants): 300 ng/mL Performed By: #### D RUGRPD #### [facility] [address] [place] [address] Dr. Jesi Rm DRUG CUT HEADER DRUG CLASS TEST SYSTEM CUT-OFF CONCENTRATIONS ARE FOLLOWS: Normal [facility] Comment on above: Performed By: #### D RUGRPD #### [facility] [address] [place] [address] Dr. Jesi Rm mAMP Negative Normal NEGATIVE [facility] Comment on above: Performed By: #### D RUGRPD #### [facility] [address] [place] [address] Dr. Jesi Rm MTD Negative Normal NEGATIVE [facility] Comment on above: Performed By: #### D RUGRPD #### [facility] [address] [place] [address] Dr. Jesi Rm OPI Negative Normal NEGATIVE [facility] Comment on above: Performed By: #### D RUGRPD #### [facility] [address] [place] [address] Dr. Jesi Rm OXY Negative Normal NEGATIVE [facility] Comment on above: Performed By: #### D RUGRPD #### [facility] [address] [place] [address] Dr. Jesi Rm PCP Negative Normal NEGATIVE [facility] Comment on above: Performed By: #### D RUGRPD #### [facility] [address] [place] [address] [address] Jesi Rm PPX Negative Normal NEGATIVE [facility] Comment on above: Performed By: #### D RUGRPD #### [facility] [address] [place] [address] Dr. Jesi Rm TCA Negative Normal NEGATIVE [facility] Comment on above: Performed By: #### D RUGRPD #### [facility] [address] [place] [address] Dr. Jesi Rm THC Negative Normal NEGATIVE [facility] Comment on above: Performed By: #### D RUGRPD #### [facility] [address] [place] [address] Dr. Jesi Rm ER URINE PROFILEon 2 Bilirubin Ql (U) Negative Normal NEGATIVE [facility] Comment on above: Performed By: #### M ALBCRL #### [facility] [address] [place] [address] Dr. Jesi Rm Clarity (U) CLEAR Normal CLEAR [facility] Comment on above: Performed By: #### M ALBCRL #### [facility] [address] [place] [address] Dr. Jesi Rm Color (U) YELLOW Normal YELLOW [facility] Comment on above: Performed By: #### M ALBCRL #### [facility] [address] [place] [address] Dr. Jesi Rm ERUBari A micrscopic examination will be performed if indicated. Normal [facility] Comment on above: Performed By: #### M ALBCRL #### [facility] [address] [place] [address] Dr. Jesi Rm Glucose Ql (U) Negative Normal NEGATIVE [facility] Comment on above: Performed By: #### M ALBCRL #### [facility] [address] [place] [address] Dr. Jesi Rm Hemoglobin Ql (U) TRACE-INTACT Abnormal NEGATIVE [facility] Comment on above: Performed By: #### M ALBCRL #### [facility] [address] [place] [address] Dr. Jesi Rm Ketones Ql (U) 15 mg/dl Abnormal NEGATIVE [facility] Comment on above: Performed By: #### M ALBCRL #### [facility] [address] [place] [address] Dr. Jesi Rm LEUKOCYTES Negative Normal NEGATIVE [facility] Comment on above: Performed By: #### M ALBCRL #### [facility] [address] [place] [address] Dr. Jesi Rm Nitrite Ql (U) Negative Normal NEGATIVE [facility] Comment on above: Performed By: #### M ALBCRL #### [facility] [address] [place] [address] Dr. Jesi Rm pH (U) 6.0 [pH] Normal 5-9 [facility] Comment on above: Performed By: #### M ALBCRL #### [facility] [address] [place] [address] Dr. Jesi Rm Protein (U) [Mass/Vol] 30 mg/dL Abnormal NEGATIVE/ TRACE [facility] Comment on above: Performed By: #### M ALBCRL #### [facility] [address] [place] [address] Dr. Jesi Rm SPEC GRAVITY 1.025 Normal 1.005-<=1.025 [facility] Comment on above: Performed By: #### M ALBCRL #### [facility] [address] [place] [address] Dr. Jesi Rm UR MICRO IND INDICATED Normal [facility] Comment on above: Performed By: #### M ALBCRL #### [facility] [address] [place] [address] Dr. Jesi Rm Urobilinogen Qn (U) 0.2 {Chirag'U}/dL Normal 0.2 - 1. 0 [facility] Comment on above: Performed By: #### M ALBCRL #### [facility] [address] [place] [address] Dr. Jesi Rm PROF CHEM 8 (BAS METB)on Anion gap [Moles/Vol] 10.8 mmol/L Normal [facility] Comment on above: Performed By: #### M ALBCRL #### [facility] [address] [place] [address] Dr. Jesi Rm Calcium [Mass/Vol] 8.9 mg/dL Normal 8.5-10.1 [facility] Comment on above: Performed By: #### M ALBCRL #### [facility] [address] [place] [address] Dr. Jesi Rm Chloride [Moles/Vol] 104 mmol/L Normal 98-107 [facility] Comment on above: Performed By: #### M ALBCRL #### [facility] [address] [place] [address] Dr. Jesi Rm CO2 [Moles/Vol] 27.6 mmol/L Normal 21.0-32.0 [facility] Comment on above: Performed By: #### M ALBCRL #### [facility] [address] [place] [address] Dr. Jesi Rm Creatinine [Mass/Vol] 0.74 mg/dL Normal 0.55-1.02 [facility] Comment on above: Performed By: #### M ALBCRL #### [facility] [address] [place] [address] Dr. Jesi Rm EGFR-AF SOMALI >60 Normal >=60 [facility] Comment on above: Performed By: #### M ALBCRL #### [facility] [address] [place] [address] Dr. Jesi Rm EGFR-NON AF SOMALI >60 Normal >=60 [facility] Comment on above: Performed By: #### M ALBCRL #### [facility] [address] [place] [address] Dr. Jesi Rm Glucose [Mass/Vol] 138 mg/dL Critically high 74-106 [facility] Comment on above: Performed By: #### M ALBCRL #### [facility] [address] [place] [address] Dr. Jesi Rm Potassium [Moles/Vol] 3.4 mmol/L Critically low 3.5-5.1 [facility] Comment on above: Performed By: #### M ALBCRL #### [facility] [address] [place] [address] Dr. Jesi Rm Sodium [Moles/Vol] 139 mmol/L Normal 136-145 [facility] Comment on above: Performed By: #### M ALBCRL #### [facility] [address] [place] [address] [address] Jesi Rm Urea nitrogen [Mass/Vol] 10.0 mg/dL Normal 7.0-18.0 [facility] Comment on above: Performed By: #### M ALBCRL #### [facility] [address] [place] [address] Dr. Jesi Rm Urea nitrogen/Creatinine [Mass ratio] 13.5 mg/mg Normal [facility] Comment on above: Performed By: #### M ALBCRL #### [facility] [address] [place] [address] Dr. Jesi Rm SED RATE [facility] 2021 SED RATE 20 mm/hr Normal <=30 [facility] Comment on above: Performed By: #### M ALBCRL #### [facility] [address] [place] [address] Dr. Jesi Rm URINE MICROSCOPIC ONLYon BACTERIA NONE SEEN Normal NONE SEEN [facility] Comment on above: Performed By: #### C BC #### [facility] [address] [place] [address] Dr. Jesi Rm Bacteria identified Cx Nom (U) NOT INDICATED Normal [facility] Comment on above: Performed By: #### C BC #### [facility] [address] [place] [address] Dr. Jesi Rm CAST NONE SEEN Normal NONE SEEN [facility] Comment on above: Performed By: #### C BC #### [facility] [address] [place] [address] Dr. Jesi Rm Crystals LM Nom (Urine sed) NONE SEEN Normal NONE SEEN [facility] Comment on above: Performed By: #### C BC #### [facility] [address] [place] [address] [address] Jesi Rm Epithelial cells LM Ql (Urine sed) FEW Abnormal NONE SEEN /RARE [facility] Comment on above: Performed By: #### C BC #### [facility] [address] [place] [id number] [address] Jesi Rm MUCOUS NONE SEEN Normal NONE SEEN [facility] Comment on above: Performed By: #### C BC #### [facility] [address] [place] [address] [address] Jesi Rm RBC 2-5 Abnormal 0-2 [facility] Comment on above: Performed By: #### C BC #### [facility] [address] [place] [id number] [address] Jesi Rm WBC 0-2 Abnormal NONE SEEN [facility] Comment on above: Performed By: #### C BC #### [facility] [address] [place] [address] [address] Jesi Rm XR CHEST 1 Von 03-08-2022 XR CHEST 1 V EXAM: XR CHEST 1 V HISTORY: Altered mental status COMPARISON: None. TECHNIQUE: Chest single view. FINDINGS: Limitations by patient positioning. Lines/tubes/devices: EKG leads overlie the chest. No indwelling lines are seen. Cardiomediastinum: Cardiac silhouette appears mildly enlarged Mildly tortuous ectatic aorta. Vasculature: No increased pulmonary vasculature. Lungs/pleura: Lungs appear hyperinflated with interstitial coarsening, findings suggestive of COPD/emphysema. Mild right greater than left basilar infiltrates or atelectasis. No sizable effusion, or visible pneumothorax. Bones/soft tissues: Bony thorax appears grossly intact as seen. IMPRESSION: Mild right greater than left basilar infiltrates or atelectasis. FOLLOW-UP: Follow-up as clinically warranted. Electronically authenticated by: ELSIE SILVA Date: 2022-03-08 01:25 Normal [facility] XR ribs RT min 3V w CXR1V*on 02-21-2022 XR ribs RT min 3V w CXR1V* [facility] [place] [address] [place], [place] [id number] XRay Report Signed Patient: Michel Cuadra MR#: [id number] 8 : 1940 Acct:[id number] Age/Sex: 81 / F ADM Date: 02/21/22 Loc: [facility] Room: Type: [facility] Attending Dr: Blanche WHYTE Copies to: BLANCHE RAJAN Ordering Provider: BLANCHE RAJAN Date of Service: 02/21/22 XR/XR ribs RT min 3V w CXR1V*: Rib pain on right side PA CHEST WITH 3 VIEWS RIGHT RIBS: CLINICAL HISTORY: Pain right lateral lower ribs for 1 day no known injury. COMPARISON: Rib series 12/11/2021. FINDINGS: Bones are grossly demineralized limiting evaluation for fracture. Heart appears normal in size. Large hiatal hernia. No consolidation or pneumothorax pleural effusion or free air. Mild lung scarring. No displaced right-sided rib fracture. XR/XR ribs RT min 3V w CXR1V* IMPRESSION: NO DISPLACED RIGHT-SIDED RIB FRACTURE IS SEEN. Impression dictated by: Mark Soto Jr., KapilOSalena02/21/2022 3:27 PM Dictation Location: [place] [address] Transcribed By: [facility] 02/21/22 1527 Dictated By: Mark Soto Jr, DO 02/21/22 1525 Signed By: 02/21/22 1527 [facility] XR ribs RT min 3V w CXR1V*on 12-11-2021 XR ribs RT min 3V w CXR1V* [facility] [place] [address] XRay Report Signed Patient: Michel Cuadra MR#: [id number] 8 : 1940 Acct:[id number] Age/Sex: 81 / F ADM Date: 12/11/21 Loc: [facility]: [facility] Dr: Blanche WHYTE Copies to: BLANCHE RAJAN Ordering Provider: BLANCHE RAJAN Date of Service: 12/11/21 XR/XR ribs RT min 3V w CXR1V*: Rib pain on right side PA CHEST WITH 3 VIEWS RIGHT RIBS: CLINICAL HISTORY: Continued pain over right posterior lower ribs. Previous fracture at 10th rib. COMPARISON: Rib series 6- FINDINGS: Bones are grossly demineralized limiting evaluation for fracture. Heart appears normal in size. Large hiatal hernia. No focal consolidation, pneumothorax, pleural effusion or free air. Mild lung scarring. The previously identified right rib fracture is occult on today's study. No new displaced rib fracture seen. XR/XR ribs RT min 3V w CXR1V* IMPRESSION: SUBOPTIMAL STUDY DUE TO GROSS DEMINERALIZATION. NO DISPLACED RIGHT-SIDED RIB FRACTURES SEEN. Impression dictated by: Mark Soto Jr., DSalenaOSalena12/11/2021 4:14 PM Dictation Location: [place] [address] Transcribed By: [facility] 12/11/21 1614 Dictated By: Mark Soto Jr, DO 12/11/21 1611 Signed By: 12/11/21 1614 Normal [facility] XR ribs RT min 3V w CXR1V* [facility] [employer] Other XR ribs RT min 3V w CXR1V* [facility] [employer] [facility] [employer] Other XR ribs RT min 3V w CXR1V* [address] [place] [address] [employer] [facility] [employer] Other XR ribs RT min 3V w CXR1V* [place] [address] [employer] Other XR ribs RT min 3V w CXR1V* XRay Report [employer] Other XR ribs RT min 3V w CXR1V* Signed [employer] Other XR ribs RT min 3V w CXR1V* Patient: Michel Cuadra MR#: [id number] [employer] Other XR ribs RT min 3V w CXR1V* 8 [employer] Other XR ribs RT min 3V w CXR1V* : 1940 Acct:[id number] [employer] Other XR ribs RT min 3V w CXR1V* Age/Sex: 81 / F ADM Date: 12/11/21 [employer] Other XR ribs RT min 3V w CXR1V* Loc: [facility] Room: Type: [facility] [employer] Other XR ribs RT min 3V w CXR1V* Attending Dr: Blanche Rajan [facility] [employer] Other XR ribs RT min 3V w CXR1V* Copies to: BLANCHE RAJAN [email or web address] Other XR ribs RT min 3V w CXR1V* Ordering Provider: BLANCHE RAJAN [facility] [employer] Other XR ribs RT min 3V w CXR1V* Date of Service: 12/11/21 [employer] Other XR ribs RT min 3V w CXR1V* XR/XR ribs RT min 3V w CXR1V*: Rib pain on right side [employer] Other XR ribs RT min 3V w CXR1V* PA CHEST WITH 3 VIEWS RIGHT RIBS: [employer] Other XR ribs RT min 3V w CXR1V* CLINICAL HISTORY: Continued pain over right posterior lower ribs. Previous fracture at 10th rib. [employer] Other XR ribs RT min 3V w CXR1V* COMPARISON: Rib series 6- [employer] Other XR ribs RT min 3V w CXR1V* FINDINGS: [employer] Other XR ribs RT min 3V w CXR1V* Large hiatal hernia. No focal consolidation, pneumothorax, pleural effusion or free air. Mild lung [employer] Other XR ribs RT min 3V w CXR1V* scarring. The previously identified right rib fracture is occult on today's study. No new [employer] Other XR ribs RT min 3V w CXR1V* displaced rib fracture seen. [employer] Other XR ribs RT min 3V w CXR1V* XR/XR ribs RT min 3V w CXR1V* [employer] Other XR ribs RT min 3V w CXR1V* IMPRESSION: [employer] Other XR ribs RT min 3V w CXR1V* SUBOPTIMAL STUDY DUE TO GROSS DEMINERALIZATION. NO DISPLACED RIGHT-SIDED RIB FRACTURES SEEN. [employer] Other XR ribs RT min 3V w CXR1V* Impression dictated by: Mark Soto Jr., D.O.12/11/2021 4:14 PM [employer] Other XR ribs RT min 3V w CXR1V* Dictation Location: [place] [address] [employer] Other XR ribs RT min 3V w CXR1V* Transcribed By: [facility] 12/11/21 [facility]4 [employer] Other XR ribs RT min 3V w CXR1V* Dictated By: Mark Soto Jr, DO 12/11/21 1611 [employer] Other XR ribs RT min 3V w CXR1V* Signed By: [employer] Other XR ribs RT min 3V w CXR1V* 12/11/21 [facility]9 [employer] Other MICROALBUMIN/ CREATININE RAT IOon 11-29-2021 Albumin, Urine 43.8 ug/mL Normal Not Estab. [facility] Comment on above: Performed By: #### M ALBCRL #### [facility] [address] [place] [address] [address] Jesi Rm Albumin/ Creatinine Ratio 41 mg/g creat Critically high 0-29 [facility] Comment on above: Result Comment: Norm al: 0 - 29 Moderately increased: 30 - 300 Severely increased: >300 Performed By: #### M ALBCRL #### [facility] [address] [place] [address] [address] Jesi Rm Creatinine, Urine 106.7 mg/dL Normal Not Estab. [facility] Comment on above: Performed By: #### M ALBCRL #### [facility] [address] [place] [address] [address] Jesi Rm GLYCOHEMOGLOBIN A1Con 2021 ADA RECOMMENDATION SEE BELOW Normal [facility] Comment on above: Result Comment: ADA RECOMMENDED LIMIT 4.0 - 6.0 ADA THERAPEUTIC TARGET < 7.0 ACTION SUGGESTED > 7.0 Performed By: #### A 1C #### [facility] [address] [place] [address] [address] Jesi Rm Glucose [Mass/Vol] 111 mg/dL Normal [facility] Comment on above: Performed By: #### A 1C #### [facility] [address] [place] [address] [address] Jesi Rm HbA1c (Bld) [Mass fraction] 5.5 % Normal 4.5-6.2 [facility] Comment on above: Performed By: #### A 1C #### [facility] [address] [place] [address] [address] Jesi Rm LIPID PROFILEon 11-28-2021 CHOL-HDL RATIO NORM SEE BELOW Normal [facility] Comment on above: Result Comment: 3.3 - 4.4 LOW RISK 4.4 - 7.1 AVERAGE RISK 7.1 - 11.0 MODERATE RISK >11.0 HIGH RISK Performed By: #### C MP, LIPID #### [facility] [address] [place] [address] Dr. Jesi Rm Cholesterol [Mass/Vol] 220 mg/dL Critically high <=200 [facility] Comment on above: Performed By: #### C MP, LIPID #### [facility] [address] [place] [address] [address] Jesi Rm Cholesterol in HDL [Mass/Vol] 86 mg/dL Critically high 40-60 [facility] Comment on above: Performed By: #### C MP, LIPID #### [facility] [address] [place] [address] [address] Jesi Rm Cholesterol in LDL [Mass/Vol] 113.2 mg/dL Normal [facility] Comment on above: Performed By: #### C MP, LIPID #### [facility] [address] [place] [address] [address] Jesi Rm Cholesterol.total/Ch olesterol in HDL [Mass ratio] 2.6 {ratio} Normal [facility] Comment on above: Performed By: #### C MP, LIPID #### [facility] [address] [place] [address] Dr. Jesi Rm HDL NORMAL > or = 60 mg/dl - LOW CARDIOVASCULAR RISK <40 mg/dl - HIGH CARDIOVASCULAR RISK Normal [facility] Comment on above: Performed By: #### C MP, LIPID #### [facility] [address] [address] [address] Jesi Rm LDL CALC NORMAL SEE BELOW Normal [facility] Comment on above: Result Comment: <100 mg/dl OPTIMAL 100 - 129 mg/dl NEAR OR ABOVE OPTIMAL 130 - 159 mg/dl BORDERLINE HIGH 160 - 189 mg/dl HIGH >190 mg/dl VERY HIGH Performed By: #### C MP, LIPID #### [facility] [address] [address] [address] Jesi mR Triglyceride [Mass/Vol] 104 mg/dL Normal <=150 [facility] Comment on above: Performed By: #### C MP, LIPID #### [facility] [address] [place] [address] Dr. Jesi Rm VLDL CALC 20.8 mg/dL Normal [facility] Comment on above: Performed By: #### C MP, LIPID #### [facility] [address] [address] [address] Jesi Rm PROF 14(COMP METB)on 022 Albumin [Mass/Vol] 3.9 g/dL Normal 3.4-5.0 [facility] Comment on above: Performed By: #### C MP, LIPID #### [facility] [address] [place] [address] Dr. Jesi Rm Albumin/Globulin [Mass ratio] 1.1 {ratio} Normal [facility] Comment on above: Performed By: #### C MP, LIPID #### [facility] [address] [address] [address] Jesi Rm ALP [Catalytic activity/Vol] 53 U/L Normal 46-116 [facility] Comment on above: Performed By: #### C MP, LIPID #### [facility] [address] [place] [address] Dr. Jesi Rm ALT [Catalytic activity/Vol] 16 U/L Normal 14-59 [facility] Comment on above: Performed By: #### C MP, LIPID #### [facility] [address] [place] [address] Dr. Jesi Rm Anion gap [Moles/Vol] 9.7 mmol/L Normal [facility] Comment on above: Performed By: #### C MP, LIPID #### [facility] [address] [place] [address] Dr. Jesi Rm AST [Catalytic activity/Vol] 21 U/L Normal 15-37 [facility] Comment on above: Performed By: #### C MP, LIPID #### [facility] [address] [place] [address] Dr. Jesi Rm Bilirubin [Mass/Vol] 0.7 mg/dL Normal 0.2-1.0 [facility] Comment on above: Performed By: #### C MP, LIPID #### [facility] [address] [place] [address] Dr. Jesi Rm Calcium [Mass/Vol] 9.4 mg/dL Normal 8.5-10.1 [facility] Comment on above: Performed By: #### C MP, LIPID #### [facility] [address] [place] [address] Dr. Jesi Rm Chloride [Moles/Vol] 100 mmol/L Normal 98-107 [facility] Comment on above: Performed By: #### C MP, LIPID #### [facility] [address] [place] [address] Dr. Jesi Rm CO2 [Moles/Vol] 30.0 mmol/L Normal 21.0-32.0 [facility] Comment on above: Performed By: #### C MP, LIPID #### [facility] [address] [address] [address] Jesi Rm Creatinine [Mass/Vol] 0.76 mg/dL Normal 0.55-1.02 [facility] Comment on above: Performed By: #### C MP, LIPID #### [facility] [address] [place] [address] Dr. Jesi Rm EGFR-AF SOMALI >60 Normal >=60 [facility] Comment on above: Performed By: #### C MP, LIPID #### [facility] [address] [place] [address] Dr. Jesi Rm EGFR-NON AF SOMALI >60 Normal >=60 [facility] Comment on above: Performed By: #### C MP, LIPID #### [facility] [address] [place] [address] Dr. Jesi Rm Globulin (S) [Mass/Vol] 3.5 g/dL Normal [facility] Comment on above: Performed By: #### C MP, LIPID #### [facility] [address] [place] [address] Dr. Jesi Rm Glucose [Mass/Vol] 92 mg/dL Normal 74-106 [facility] Comment on above: Performed By: #### C MP, LIPID #### [facility] [address] [address] [address] Jesi Rm Potassium [Moles/Vol] 3.7 mmol/L Normal 3.5-5.1 [facility] Comment on above: Performed By: #### C MP, LIPID #### [facility] [address] [place] [address] Dr. Jesi Rm Protein [Mass/Vol] 7.4 g/dL Normal 6.4-8.2 [facility] Comment on above: Performed By: #### C MP, LIPID #### [facility] [address] [place], [place] [address] Dr. Jesi Rm Sodium [Moles/Vol] 136 mmol/L Normal 136-145 [facility] Comment on above: Performed By: #### C MP, LIPID #### [facility] [address] [place], [place] [address] Dr. Jesi Rm Urea nitrogen [Mass/Vol] 9.0 mg/dL Normal 7.0-18.0 [facility] Comment on above: Performed By: #### C MP, LIPID #### [facility] [address] [place], [place] [address] Dr. Jesi Rm Urea nitrogen/Creatinine [Mass ratio] 11.8 mg/mg Normal [facility] Comment on above: Performed By: #### C MP, LIPID #### [facility] [address] [place], [place] [address] Dr. Jesi Rm Provider Letter FTon 11-28 Provider Letter [facility] November 28[place] 2021 MICHEL CUADRA [address] [place] [phone] MICHEL CUADRA 1940 Dear Michel Cuadra , This letter is to inform you the the providers of [facility], [facility] will no longer be responsible for your routine medical care. Emergency care only will be provided for the thirty (30) days following this letter. During this time period we suggest that you find another physician for your medical needs. A listing of area physicians can be found on [facility]'s website at [email or web address] or you may contact your health plan. We will be glad to forward your records to your new physician as long as we receive a signed release of records form. Sincerely, Constantine Harding M.D., F.A.C.S. [facility] [address] [place] [id number] SENT REGULAR/CERTIFIED MAIL [facility] Provider Letteron 08-24-2021 Provider Letter August 24, 2021 MICHEL CUADRA [address] [place] [phone] MICHEL CUADRA 1940 Dear Michel , This letter is to inform you that you have missed at least three appointments in our office which you did not call to cancel. According to our records, those appointments were on: 09/29/2020, 11/20/2020, and 08/24/2021. The appointment on 08/24/21 was rescheduled 4 times, originally set for 06/18/2021. We make every effort to accommodate patients as quickly as possible. If we know you are not going to make an appointment, we can schedule another patient who needs to see one of our providers. Sincerely, [facility] [address] [facility], [place] [address] [facility], [facility] XR hip RT min 2V(w/wo pelvis )*on 08-23-2021 XR hip RT min 2V(w/wo pelvis)* [facility] [place] [address] XRay Report Signed Patient: Michel Cuadra MR#: [id number] 8 : 1940 Acct:[id number] Age/Sex: 80 / F ADM Date: 08/23/21 Loc: XGALY Room: Type: [facility] Attending Dr: Blanche WHYTE Ordering Provider: BLANCHE RAJAN Date of Service: 08/23/21 XR/XR hip RT min 2V(w/wo pelvis)*: Right hip pain Copies to: BLANCHE RAJAN XR hip RT min 2V(w/wo pelvis)* 08/23/2021 2:34 PM SIGNS AND SYMPTOMS: Right lower lateral rib pain and right hip pain PROTOCOL: Frontal radiograph the pelvis with frontal and frog-leg views of the right hip COMPARISON: None FINDINGS: The bony ring of the pelvis is grossly intact. Degenerative changes are noted in the hips and sacral iliac joints. Degenerative changes are noted in the lumbar spine. XR/XR hip RT min 2V(w/wo pelvis)* IMPRESSION: No fracture or dislocation. Degenerative changes are noted in the lumbar spine. Impression dictated by: Baldev Wong M.D.08/23/2021 3:13 PM Dictation Location: [place] [address] Transcribed By: [facility] 08/23/21 1513 Dictated By: Baldev Wong II, MD 08/23/21 1508 Signed By: 08/23/21 1513 Normal [facility] XR hip RT min 2V(w/wo pelvis)* [facility] [employer] Other XR hip RT min 2V(w/wo pelvis)* [facility] [address] [place] [employer] Other XR hip RT min 2V(w/wo pelvis)* [address] [place] [address] [employer] Other XR hip RT min 2V(w/wo pelvis)* [place] [address] [employer] Other XR hip RT min 2V(w/wo pelvis)* XRay Report [employer] Other XR hip RT min 2V(w/wo pelvis)* Signed [employer] Other XR hip RT min 2V(w/wo pelvis)* Patient: Michel Cuadra MR#: [id number] [employer] Other XR hip RT min 2V(w/wo pelvis)* 8 [employer] Other XR hip RT min 2V(w/wo pelvis)* : 1940 Acct:[id number] [employer] Other XR hip RT min 2V(w/wo pelvis)* Age/Sex: 80 / F ADM Date: 08/23/21 [employer] Other XR hip RT min 2V(w/wo pelvis)* Loc: XDCLY Room: Type: REG CLI [employer] Other XR hip RT min 2V(w/wo pelvis)* Attending Dr: Blanche Rajan [facility] [employer] Other XR hip RT min 2V(w/wo pelvis)* Ordering Provider: BLANCHE RAJANCristian [employer] Other XR hip RT min 2V(w/wo pelvis)* Date of Service: 08/23/21 [employer] Other XR hip RT min 2V(w/wo pelvis)* XR/XR hip RT min 2V(w/wo pelvis)*: Right hip pain [employer] Other XR hip RT min 2V(w/wo pelvis)* Copies to: BLANCHE RAJAN [facility] [employer] Other XR hip RT min 2V(w/wo pelvis)* XR hip RT min 2V(w/wo pelvis)* 08/23/2021 2:34 PM [employer] Other XR hip RT min 2V(w/wo pelvis)* SIGNS AND SYMPTOMS: Right lower lateral rib pain and right hip pain [employer] Other XR hip RT min 2V(w/wo pelvis)* PROTOCOL: Frontal radiograph the pelvis with frontal and frog-leg views of the right hip [employer] Other XR hip RT min 2V(w/wo pelvis)* COMPARISON: None [employer] Other XR hip RT min 2V(w/wo pelvis)* FINDINGS: [employer] Other XR hip RT min 2V(w/wo pelvis)* The bony ring of the pelvis is grossly intact. Degenerative changes are noted in the hips and [employer] Other XR hip RT min 2V(w/wo pelvis)* sacral iliac joints. Degenerative changes are noted in the lumbar spine. [employer] Other XR hip RT min 2V(w/wo pelvis)* XR/XR hip RT min 2V(w/wo pelvis)* [employer] Other XR hip RT min 2V(w/wo pelvis)* IMPRESSION: [employer] Other XR hip RT min 2V(w/wo pelvis)* No fracture or dislocation. [employer] Other XR hip RT min 2V(w/wo pelvis)* Degenerative changes are noted in the lumbar spine. [employer] Other XR hip RT min 2V(w/wo pelvis)* Impression dictated by: Baldev Wong M.D.08/23/2021 3:13 PM [employer] Other XR hip RT min 2V(w/wo pelvis)* Dictation Location: [place] [address] [employer] Other XR hip RT min 2V(w/wo pelvis)* Transcribed By: SAM 08/23/21 [facility] [employer] Other XR hip RT min 2V(w/wo pelvis)* Dictated By: Baldev Wong II, MD 08/23/21 1508 [employer] Other XR hip RT min 2V(w/wo pelvis)* Signed By: [employer] Other XR hip RT min 2V(w/wo pelvis)* 08/23/21 [facility] [employer] Other XR ribs RT min 3V w CXR1V*on 08-23-2021 XR ribs RT min 3V w CXR1V* [facility] [address] [place] [address] [place] [id number] XRay Report Signed Patient: Michel Cuadra MR#: [id number] 8 : 1940 Acct:[id number] Age/Sex: 80 / F ADM Date: 08/23/21 Loc: XDCLY Room: Type: [facility] Attending Dr: Blanche WHYTE Ordering Provider: BLANCHE RAJAN Date of Service: 08/23/21 XR/XR ribs RT min 3V w CXR1V*: Rib pain on right side Copies to: BLANCHE RAJAN XR ribs RT min 3V w CXR1V* 08/23/2021 2:34 PM SIGNS AND SYMPTOMS: Right lower lateral rib pain and right hip pain PROTOCOL: Frontal radiograph of the chest with oblique radiographs of the right ribs COMPARISON: None FINDINGS: The trachea is midline. A hiatal hernia is present with the gastric bubble superimposed on the heart shadow. Atherosclerotic changes are noted in the thoracic aorta. The heart and mediastinal structures are within normal limits. Interstitial prominence is noted in the lung parenchyma without evidence of focal consolidation. There is a minimally displaced right anterolateral 10th rib fracture.. Degenerative changes are noted in the shoulders bilaterally. XR/XR ribs RT min 3V w CXR1V* IMPRESSION: There is a minimally displaced right anterolateral 10th rib fracture. No pneumothorax. Interstitial prominence is noted in the lung parenchyma without evidence of focal consolidation. A hiatal hernia is present with the gastric bubble superimposed on the heart shadow. Impression dictated by: Baldev Wong M.D.08/23/2021 3:08 PM Dictation Location: [place] [address] Transcribed By: [facility] 08/23/21 1508 Dictated By: Baldev Wong II, MD 08/23/21 1503 Signed By: 08/23/21 1508 [facility] XR ribs RT min 3V w CXR1V* XR/XR ribs RT min 3V w CXR1V*: Rib pain on right side [employer] Other XR ribs RT min 3V w CXR1V* XR ribs RT min 3V w CXR1V* 08/23/2021 2:34 PM [employer] Other XR ribs RT min 3V w CXR1V* PROTOCOL: Frontal radiograph of the chest with oblique radiographs of the right ribs [employer] Other XR ribs RT min 3V w CXR1V* The trachea is midline. A hiatal hernia is present with the gastric bubble superimposed on the [employer] Other XR ribs RT min 3V w CXR1V* heart shadow. Atherosclerotic changes are noted in the thoracic aorta. The heart and mediastinal [employer] Other XR ribs RT min 3V w CXR1V* structures are within normal limits. Interstitial prominence is noted in the lung parenchyma without [employer] Other XR ribs RT min 3V w CXR1V* evidence of focal consolidation. There is a minimally displaced right anterolateral 10th rib [employer] Other XR ribs RT min 3V w CXR1V* fracture.. Degenerative changes are noted in the shoulders bilaterally. [employer] Other XR ribs RT min 3V w CXR1V* XR/XR ribs RT min 3V w CXR1V* [employer] Other XR ribs RT min 3V w CXR1V* There is a minimally displaced right anterolateral 10th rib fracture. [employer] Other XR ribs RT min 3V w CXR1V* No pneumothorax. [employer] Other XR ribs RT min 3V w CXR1V* Interstitial prominence is noted in the lung parenchyma without evidence of focal consolidation. [employer] Other XR ribs RT min 3V w CXR1V* A hiatal hernia is present with the gastric bubble superimposed on the heart shadow. [employer] Other XR ribs RT min 3V w CXR1V* Impression dictated by: Baldev Wong M.D.08/23/2021 3:08 PM [employer] Other XR ribs RT min 3V w CXR1V* Transcribed By: [facility] 08/23/21 1501 [facility] [employer] Other XR ribs RT min 3V w CXR1V* Dictated By: Baldev Wong II, MD 08/23/21 1509 [facility] [employer] Other XR ribs RT min 3V w CXR1V* 08/23/21 150 [facility] [employer] Other US thyroidon 08-06-2021 thyroid [facility] [address] [place] [address] [place] [address] Ultrasound Report Signed Patient: Michel Cuadra MR#: [id number] 8 : 1940 Acct:[id number] Age/Sex: 80 / F ADM Date: 08/06/21 Loc: Room: Type: [facility] Attending Dr: Alm aRosa Swartz Jr, MD Ordering Provider: ALMA ROSA SWARTZ MD Date of Service: 08/06/21 US/US thyroid: E04.1 Copies to: ALMA ROSA SWARTZ MD Thyroid ultrasound HISTORY:Thyroid nodule COMPARISON:None The RIGHT lobe measures 4.0 x 2.2 x 2.5cm. LEFT lobe measures 3.6 x 2.5 x 1.6 cm. Isthmus has an AP dimension of 0.7cm. RIGHT superior heterogeneous nodule measures up to 2.0 cm.. Focal calcifications of the LEFT lobe identified. Largest measures up to 4 mm. Symmetric blood flow of the thyroid gland identified. US/US thyroid IMPRESSION: 2.0 cm heterogeneous RIGHT thyroid nodule. Impression dictated by: Domingo Sofia M.D.08/06/2021 3:27 PM Dictation Location: [place] [address] Tech: Pat Gerardo Transcribed By: SAM 08/06/21 152 Dictated By: Domingo Sofia DO 08/06/21 1524 Signed By: 08/06/21 1527 [facility] Vital Signs Date Time Vital Sign Value Performing Clinician Facility 09-02-2024 09:41-0400 Body height 149.9 cm Craig Villanueva MD Work Phone: [facility] [employer] 07-09-2024 10:49-0400 Body height 149.9 cm Craig Villanueva MD Work Phone: [facility] 07-09-2024 10:49-0400 Body mass index (BMI) [Ratio] 19.19 kg/m2 Craig Villanueva MD Work Phone: [facility] [employer] 07-09-2024 10:49-0400 Body weight 43.09 kg Craig Villanueva MD Work Phone: [facility] [employer] 07-09-2024 10:49-0400 Diastolic blood pressure 66 mm[Hg] Craig Villanueva MD Work Phone: [facility] 07-09-2024 10:49-0400 Heart rate 71 /min Craig Villanueva MD Work Phone: [facility] 07-09-2024 10:49-0400 SaO2% (BldA) [Mass fraction] 96 % Craig Villanueva MD Work Phone: [facility] [employer] 07-09-2024 10:49-0400 Systolic blood pressure 124 mm[Hg] Craig Villanueva MD Work Phone: [facility] [employer] 07-30-2022 11:25-0400 Body height 149.86 cm Pat Layne Other [employer] Other 07-30-2022 11:25-0400 Body mass index (BMI) [Ratio] 23.63 kg/m2 Pat Layne Other [employer] Other 07-30-2022 11:25-0400 Body weight 53.07 kg Pat Layne Other [employer] Other 07-30-2022 11:25-0400 Diastolic blood pressure 69 mm[Hg] Pat Layne Other [employer] Other 07-30-2022 11:25-0400 Respiratory rate 18 /min Pat Layne Other [employer] Other 07-30-2022 11:25-0400 Systolic blood pressure 144 mm[Hg] Pat Layne Other [employer] Other 02-21-2022 14:00-0500 Body height 149.86 cm Blanche Garyault Other [employer] Other 02-21-2022 14:00-0500 Body mass index (BMI) [Ratio] 27.06 kg/m2 Blanche Satinder Other [employer] Other 02-21-2022 14:00-0500 Body temperature 98.8 [degF] Blanche Satinder Other [employer] Other 02-21-2022 14:00-0500 Body weight 60.78 kg Blanche Garyault Other [employer] Other 02-21-2022 14:00-0500 Diastolic blood pressure 73 mm[Hg] Blanche Satinder Other [employer] Other 02-21-2022 14:00-0500 Respiratory rate 18 /min Blanche Satinder Other [employer] Other 02-21-2022 14:00-0500 SaO2% (BldA) [Mass fraction] 100 % Blanche Satinder Other [employer] Other 02-21-2022 14:00-0500 Systolic blood pressure 132 mm[Hg] Blanche Rajan Other [employer] Other 12-11-2021 14:30-0400 Body height 149.86 cm Blanche Rajan Other [employer] Other 12-11-2021 14:30-0400 Body mass index (BMI) [Ratio] 26.66 kg/m2 Blanche Rajan Other [employer] Other 12-11-2021 14:30-0400 Body temperature 97.4 [degF] Blanche Rajan Other [employer] Other 12-11-2021 14:30-0400 Body weight 59.88 kg Blanche Rajan Other [employer] Other 12-11-2021 14:30-0400 Diastolic blood pressure 84 mm[Hg] Blanche Garyault Other [employer] Other 12-11-2021 14:30-0400 Respiratory rate 18 /min Blanche Rajan Other [employer] Other 12-11-2021 14:30-0400 SaO2% (BldA) [Mass fraction] 97 % Blanche Rajan Other [employer] Other 12-11-2021 14:30-0400 Systolic blood pressure 136 mm[Hg] Blacnhe Rajan Other [employer] Other 08-23-2021 14:00-0400 Body height 149.86 cm Blanche Garyault Other [employer] Other 08-23-2021 14:00-0400 Body mass index (BMI) [Ratio] 47.86 kg/m2 Blanche Rajan Other [employer] Other 08-23-2021 14:00-0400 Body temperature 98.1 [degF] Blanche Rajan Other [employer] Other 08-23-2021 14:00-0400 Body weight 107.5 kg Blanche Rajan Other [employer] Other 08-23-2021 14:00-0400 Diastolic blood pressure 78 mm[Hg] Blanche Rajan Other [employer] Other 08-23-2021 14:00-0400 Respiratory rate 18 /min Blanche Rajan Other [employer] Other 08-23-2021 14:00-0400 SaO2% (BldA) [Mass fraction] 96 % Blanche Rajan Other [employer] Other 08-23-2021 14:00-0400 Systolic blood pressure 158 mm[Hg] Blanche Rajan Other [employer] Other Encounters Encounter Date Encounter Type Care Provider Facility Start: 09-02-2024 End: 09-02-2024 Office outpatient visit 25 minutes Craig Villanueva MD Work Phone: [facility] Comment on above: Moderate dementia wi th anxiety, unspecified dementia type (HCC) (Primary Dx); Panlobular emphysema (HCC); Primary hypertension ; Weight loss Start: 09-02-2024 End: 09-02-2024 ambulatory CRAIG VILLANUEVA Not Available Start: 07-09-2024 End: 07-09-2024 Bamboo flowsheet Craig Villanueva MD Work Phone: [facility] Start: 07-09-2024 End: 07-09-2024 Bamboo flowsheet Craig Villanueva MD Work Phone: [facility] Start: 07-09-2024 End: 07-09-2024 Office outpatient visit 25 minutes Craig Villanueva MD Work Phone: [facility] Comment on above: Primary hypertension (CMS/HCC) (Primary Dx); Moderate dementia with anxiety, unspecified dementia type (CMS/HCC); Panlobular emphysema (CMS/HCC); Primary osteoarthritis involving multiple joints; Spondylosis of cervical region without myelopathy or radiculopathy; Unsteady gait; Frailty syndrome in geriatric patient; Prolapse of urethra; Chronic indwelling Molina catheter Start: 07-09-2024 End: 07-09-2024 ambulatory CRAIG VILLANUEVA Not Available Start: 12-09-2023 End: 12-09-2023 Telephone encounter Rut BHATT Work Phone: [facility] Start: 12-08-2023 End: 12-08-2023 ambulatory CRAIG VILLANUEVA Not Available Start: 12-08-2023 End: 12-08-2023 Office outpatient visit 15 minutes Craig Villanueva MD Work Phone: [facility] Comment on above: Moderate dementia wi th anxiety, unspecified dementia type (CMS/HCC) (Primary Dx) Start: 07-30-2022 End: 07-30-2022 ambulatory Pat Layne Other [employer] Other Start: 07-30-2022 Office outpatient vi sit 15 minutes Pat Layne [facility] Start: 07-16-2022 End: 07-16-2022 ambulatory BLANCHE SATINDER Facility:[facility] Start: 07-07-2022 End: 07-07-2022 ambulatory BLANCHE SATINDER Facility:[facility] Start: 03-20-2022 End: 03-20-2022 ambulatory BLANCHE SATINDER Facility:[facility] Start: 03-08-2022 End: 03-09-2022 ambulatory BLANCHE SATINDER Facility:[facility] Start: 02-21-2022 End: 02-21-2022 ambulatory PHYSICIAN NO FAMILY Facility:[facility] Start: 02-21-2022 Office outpatient vi sit 25 minutes Blanche Satinder [facility] Start: 02-21-2022 End: 02-21-2022 ambulatory MANAGER SERVICES-C Blanchemaco Rajan Work Phone: [facility] Work Phone: Start: 02-21-2022 End: 02-21-2022 Patient encounter procedure MANAGER SERVICES-C Blanche Rajan Work Phone: [facility] Start: 12-31-2021 End: 12-31-2021 ambulatory Blanchemaco Rajan Other [employer] Other Start: 12-31-2021 Telephone encounter Blanche Divnia t [facility] Start: 12-11-2021 End: 12-11-2021 ambulatory Blanche Satinder [employer] Other Start: 12-11-2021 Office outpatient vi sit 25 minutes Blanche Satinder [facility] Start: 12-11-2021 End: 12-11-2021 Patient encounter procedure MANAGER SERVICES-C Blanche Rajan Work Phone: [facility] [place] Start: 11-28-2021 End: 11-29-2021 ambulatory BLANCHEMACO RAJAN Facility: Start: 09-13-2021 ambulatory BLANCHEMACO RAJAN Facil ity:H1 Start: 08-23-2021 End: 08-23-2021 ambulatory Blanche Satinder [employer] [facility] [employer] Other Start: 08-23-2021 Office outpatient vi sit 25 minutes Blanche Satinder [facility] [place] Start: 08-06-2021 End: 08-06-2021 ambulatory Blanche Satinder Facility:[facility] Start: 08-06-2021 End: 08-06-2021 Patient encounter procedure MANAGER SERVICES-C Blanche Rajan Work Phone: [facility] [place] Procedures Date Procedure Procedure Detail Performing Clinician Start: 02-21-2022 Plain chest X-ray MANAGER SERVICES-C Blanche Rajan Work Phone: Start: 12-11-2021 Plain chest X-ray MANAGER SERVICES-C Blanche Rajan Work Phone: Start: 08-06-2021 US scan of thyroid MANAGER SERVICES- C Blanche Rajan Work Phone: Plan of Treatment Date Care Activity Detail Author Start: 11-22-2024 Influenza vaccination Influenz a Vaccine (Season Ended) [facility] Start: 09-02-2024 End: 09-02-2025 Comprehensive metabolic 2000 panel - Serum or Plasma Comprehensive metabolic panel Lab Routine Primary hypertension Weight loss Expected: 09/02/2024 (Approximate), Expires: 09/02/[address] [facility] Comment on above: Expected: 09/02/2024 (Approximate), Expires: 09/02/2025 Start: 09-02-2024 End: 09-02-2025 Thyrotropin [Units/volume] in Serum or Plasma TSH Lab Routine Weight loss Expected: 09/02/2024 (Approximate), Expires: 09/02/[address] [facility] Comment on above: Expected: 09/02/2024 (Approximate), Expires: 09/02/2025 Start: 09-02-2024 End: 09-02-2025 Thyroxine (T4) free [Mass/volume] in Serum or Plasma T4, free Lab Routine Weight loss Expected: 09/02/2024 (Approximate), Expires: 09/02/[address] [facility] Comment on above: Expected: 09/02/2024 (Approximate), Expires: 09/02/2025 Start: 09-02-2024 End: 09-02-2025 Triiodothyronine (T3) Free [Mass/volume] in Serum or Plasma T3, free Lab Routine Weight loss Expected: 09/02/2024 (Approximate), Expires: 09/02/[address] [facility] Comment on above: Expected: 09/02/2024 (Approximate), Expires: 09/02/2025 Start: 08-19-2024 End: 08-19-2024 Telemedicine consultation with patient 08/19/2024 11:00 AM EDT Telemedicine [facility] [address] [place] [address] Craig Villanueva MD [address] [place] [address] [facility] Start: 07-09-2024 End: 07-09-2024 Patient encounter procedure 07/09/2024 11:00 AM EDT Office Visit [facility] [address] [place] [address] Craig Villanueva MD [address] [place] [address] Arrived [facility] Comment on above: Arrived Start: 11-23-2023 Influenza vaccination [facility] Different ial [facility] - Blood CBC and differential Lab Routine Panlobular emphysema (HCC) Weight loss Ordered: 09/02/[address] [facility] Work Phone: Comment on above: Ordered: 09/02/2024 Immunizations Immunization Date Immunization Notes Care Provider [facility] 03-09-2022 influenza, high dose seasonal, preservative-free Craig Villanueva MD Work Phone: [facility] 03-09-2022 pneumococcal polysaccharide vaccine, 23 valent Craig Villanueva MD Work Phone: [facility] 03-09-2022 influenza virus vacc ine, unspecified formulation Craig Villanueva MD Work Phone: [facility] 04-04-2021 Influenza, Seasonal, Quadrivalent, Adjuvanted Craig Villanueva MD Work Phone: [facility] 07-31-2020 pneumococcal conjuga te vaccine, 13 valent Craig Villanueva MD Work Phone: [facility] Payers Date Payer Category Payer Medicare COUNT INCLUDES THE [facility] MEDICARE ADVANTAGE COUNT INCLUDES THE [facility] MEDICARE ADVANTAGE [id number] 2021-Present [address] [place] [address] [id number] 2021 Medicare (Managed Care) [employer] [id number] 2020 Medicaid [id number] 1959 Medicaid [id number] 1959 Medicare [id number] 1959 Self-pay [id number] 1939 Unknown [id number]. 593 1939 Unknown [id number]. 593 1939 Unknown [id number] [id number]. 593 1939 Unknown [id number]. 593 1939 Unknown [id number] .[id number]. 593 1939 Unknown [id number] [id number]. 593 1939 Unknown [id number]. 1259 1939 Unknown [id number] [id number]. 1259 1939 Unknown [id number]. 1259 Unknown [id number]. 531 Unknown [id number]. 531 Unknown [id number]. 531 Unknown [id number]. 531 Social History Date Type Detail Facility Start: 07-26-2020 End: 10-15-2022 Tobacco smoking status SCIS Never smoked tobacco (finding) [facility] Start: 1940 Sex Assigned At Female [facility] Start: 05-14-2023 End: 09-02-2024 Sex Assigned At [facility] Start: 10-15-2022 Tobacco use and exposure Smokeless tobacco non-user [facility] Start: 12-08-2023 End: 09-02-2024 Alcoholic beverage intake Ex-drinker (finding) [facility] Start: 05-14-2023 End: 09-02-2024 History of Social function [facility] Do you belong to any clubs or organizations such as faith groups, unions, fraternal or athletic groups, or school groups? No [facility] Are you now , , , , never or living with a partner? [facility] How often to you hav e a drink containing alcohol? Never [facility] How many standard dr inks containing alcohol do you have on a typical day? Patient does not drink [facility] How hard is it for y ou to pay for the very basics like food, housing, medical care, and heating Hard [facility] Do you feel stress - tense, restless, nervous, or anxious, or unable to sleep at night because your mind is troubled all the time - these days [OSQ] Rather much [facility] (I/We) worried wheedilma er (my/our) food would run out before (I/we) got money to buy more. Never true [facility] Start: 10-18-2022 Alcohol Comment caffeine intake: 1-2 cups per day [facility] Start: 04-28-2023 Gender identity Identifies as female gender (finding) [facility] Start: 04-28-2023 Sexual orientation Heterosexual (finding) [facility] How often do you nee d to have someone help you when you read instructions, pamphlets, or other written material from your doctor or pharmacy [SILS] Always [facility] How often to you hav e a drink containing alcohol? Monthly or less [facility] How many standard dr inks containing alcohol do you have on a typical day? 1 or 2 [facility] Do you feel stress - tense, restless, nervous, or anxious, or unable to sleep at night because your mind is troubled all the time - these days [OSQ] Only a little [facility] Functional Status Date Assessment Result Facility 09-02-2024 Total score [AUDIT-C] 1 09/03/19 25 9:50 AM EDT Mychart, Generic [facility] 09-02-2024 How often to you hav e a drink containing alcohol? Monthly or less 09/02/2024 9:50 AM EDT Mychart, Generic Monthly or less [facility] 09-02-[address] inks containing alcohol do you have on a typical day? 1 or 2 09/02/2024 9:50 AM EDT Mychart, Generic 1 or 2 [facility] 09-02-2024 How often do you hav e 6 or more drinks on 1 occasion? Never 09/02/2024 9:50 AM EDT Mychart, Generic Never [facility] 09-02-2024 Patient Health Quest ionnaire 2 item (PHQ-2) [Reported] [facility] 07-09-2024 Patient Health Quest ionnaire 2 item (PHQ-2) [Reported] [facility] Clinical Notes 08-23-2021 to 09-02-2024 Craig Villanueva MD - 09/02/2024 10:00 AM Vicente Villanueva MD - 07/09/2024 11:00 AM EDTTelephone Encounter - NOVA Felix - 12/09/2023 9:30 AM OSWALDOTCraig Villanueva MD - 12/08/2023 9:15 AM EDT Note Date & Type Note Facility 09-02-2024 History of Presen t illness Narrative Images from the original note were not included. Subjective Patient ID: Michel Cuadra is a 83 y.o. female who presents for Follow-up. Follow up pt does not take Aricept regularly pt daughter states she does notice a little improvement still has some confusion and struggles with ADL's lives with daughter She has been falling more frequently Pt daughter states she has lost some weight she does not have a current weight on her but that's her clothes are a little more loose on her she is wondering if she needs to have her thyroid checked Denies any new behavior issues Current Outpatient Medications on File Prior to Visit Medication Sig Dispense Refill albuterol HFA 90 mcg/act inhaler Inhale 2 puffs every 4 (four) hours if needed for wheezing 18 g 3 losartan (Cozaar) 25 MG tablet Take 1 tablet (25 mg) by mouth in the morning. 100 tablet 3 oxybutynin (Ditropan) 5 MG tablet Take 1 tablet (5 mg) by mouth Daily 90 tablet 3 pantoprazole (ProtoNix) 40 MG EC tablet Take 1 tablet (40 mg) by mouth Daily 90 tablet 3 [DISCONTINUED] donepezil (Aricept) 5 MG tablet Take 1 tablet (5 mg) by mouth at bedtime 30 tablet 11 No current facility-administered medications on file prior to visit. I have reviewed and reconciled the history and medication list with the patient today. 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 Appearance: Normal appearance. Pulmonary: Effort: Pulmonary effort is normal. Neurological: Mental Status: She is alert. Psychiatric: Mood and Affect: Mood normal. Assessment/Plan Diagnoses and all orders for this visit: Moderate dementia with anxiety, unspecified dementia type (HCC) - donepezil (Aricept) 10 MG tablet; Take 1 tablet (10 mg) by mouth at bedtime - Increase from 5mg. Panlobular emphysema (HCC) - CBC and differential Primary hypertension - Comprehensive metabolic panel; Future Weight loss - CBC and differential - Comprehensive metabolic panel; Future - TSH; Future - T4, free; Future - T3, free; Future - Today's visit was a Telemedicine visit. Patient understands this limits the extent of exam possible and voiced consent for treatment through Telemedicine. This visit was conducted with audio and visual connection. Follow up in about 4 weeks (around 09/30/2024) for Televisit. documented in this encounter [facility] 07-09-2024 History of Presen t illness Narrative Images from the original note were not included. Subjective Patient ID: Michel Cuadra is a 83 y.o. female who presents for Dementia. Pt daughter states she has been a little more confused Trouble sleeping daughter reports she has night and day confused frequently Difficulty completing ADL's (getting dressed, etc) forgets who people are She misses extended family Pt lives with daughter Memory Loss Altered Mental Status Current Outpatient Medications on File Prior to Visit Medication Sig Dispense Refill albuterol HFA 90 mcg/act inhaler Inhale 2 puffs every 4 (four) hours if needed for wheezing 18 g 3 losartan (Cozaar) 25 MG tablet Take 1 tablet (25 mg) by mouth in the morning. 100 tablet 3 oxybutynin (Ditropan) 5 MG tablet Take 1 tablet (5 mg) by mouth Daily 90 tablet 3 pantoprazole (ProtoNix) 40 MG EC tablet Take 1 tablet (40 mg) by mouth Daily 90 tablet 3 [DISCONTINUED] donepezil (Aricept) 5 MG tablet Take 1 tablet (5 mg) by mouth at bedtime 30 tablet 11 No current facility-administered medications on file prior to visit. I have reviewed and reconciled the history and medication list with the patient today. Allergies Allergen Reactions Codeine Other Reaction(s): Unknown Methocarbamol Unknown Social History Tobacco Use Smoking status: Never Smokeless tobacco: Never Substance Use Topics Alcohol use: Not Currently Comment: caffeine intake: 1-2 cups per day Drug use: Never Family History Problem Relation Name Age of Onset Hypertension Mother Heart failure Mother Cancer Father Past Medical History: Diagnosis Date Anemia, iron deficiency Cervical pain (neck) Dehydration 07/2020 GERD (gastroesophageal reflux disease) Hiatal hernia HTN (hypertension) (CMS/HCC) Hydronephrosis Hyperthyroidism (CMS/HCC) 10/15/2022 Non-toxic nodular goiter (CMS/HCC) 10/15/2022 Osteoarthritis Thyroid enlarged (CMS/HCC) Thyroid nodule (CMS/HCC) UTI (urinary tract infection) 07/2020 Past Surgical History: Procedure Laterality Date HYSTERECTOMY OTHER SURGICAL HISTORY Right ankle surgery THYROID SURGERY 09/14/2020 bilateral FNA Visit Vitals BP 124/66 Pulse 71 Ht 4' 11 Wt 95 lb SpO2 96% BMI 19.19 kg/m Smoking Status Never BSA 1.34 m Review of Systems Objective Physical Exam Constitutional: General: She is not in acute distress. Appearance: She is ill-appearing. Cardiovascular: Rate and Rhythm: Normal rate and regular rhythm. Heart sounds: No murmur heard. Pulmonary: Effort: Accessory muscle usage and prolonged expiration present. Breath sounds: Decreased air movement present. Musculoskeletal: Right lower leg: No edema. Left lower leg: No edema. Neurological: General: No focal deficit present. Mental Status: She is alert and oriented to person, place, and time. Sensory: No sensory deficit. Motor: Weakness present. Coordination: Coordination abnormal. Gait: Gait abnormal. Deep Tendon Reflexes: Reflexes normal. Psychiatric: Mood and Affect: Mood normal. Thought Content: Thought content normal. Judgment: Judgment normal. Maximum Score Orientation 5 ( 1 ) What is the (year), (season), (date), (day), (month)? 5 ( 0 ) Where are we (state), (county), (town), (hospital), (floor)? Registration 3 ( 2 ) Name 3 Objects: One second to say each. Then ask the patient all 3 after you have said them. Give 1 point for each correct answer. Then repeat them until patient learns all 3. Count trials and record. Attention and Calculation 5 ( 0 ) Serial 7's: One point for each correct. Stop after 5 answers. Alternatively, spell world backwards. Recall 3 ( 0 ) Ask for 3 the 3 objects repeated above. Give 1 point for each correct. Language 2 ( 2 ) Name a pencil and watch (2 points). 1 ( 0 ) Repeat the following: No ifs ands or buts (1 point). 3 ( 2 ) Follow a 3-stage command: Take a paper in your right hand, fold it in half and put it on the floor (3 points). 1 ( 1 ) Read and obey the following: Close your eyes (1 point). 1 ( 0 ) Write a sentence (1 point). 1 ( 0 ) Copy design (1 point). 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 documented in this encounter [facility] 12-09-2023 Telephone encount er [facility], new prescriptions requested by pharmacist. Sent. [facility] 12-09-2023 Miscellaneous Notes Formattin g of this note might be different from the original. Pt using [facility] pharmacy now, new prescriptions requested by pharmacist. Sent. documented in this encounter [facility] 12-08-2023 History of Presen t illness Narrative Images from the original note were not included. Subjective Patient ID: Michel Cuadra is a 83 y.o. female who presents for Altered Mental Status. Pt daughter states she has been a little more confused Her anxiety has worsened she cries when her cats or family members are not with her or within sight Pt daughter states she complained of some lower back and hip pain when trying to get out of bed occ. Uses OTC NSAIDS that seem to help most of the time Pt lives with daughter Altered Mental Status Current Outpatient Medications on File Prior to Visit Medication Sig Dispense Refill albuterol HFA 90 mcg/act inhaler Inhale 2 puffs every 4 (four) hours if needed for wheezing 18 g 3 losartan (Cozaar) 25 MG tablet Take 1 tablet (25 mg) by mouth in the morning. 100 tablet 3 oxybutynin (Ditropan) 5 MG tablet Take 5 mg by mouth in the morning. pantoprazole (ProtoNix) 40 MG EC tablet Take 1 tablet (40 mg) by mouth in the morning. 90 tablet 3 [DISCONTINUED] traMADol-acetaminophen (UltraCET) 37.5-325 MG tablet Take 2 tablets by mouth every 6 (six) hours if needed. [DISCONTINUED] triamcinolone (Kenalog) 0.025 % cream No current facility-administered medications on file prior to visit. I have reviewed and reconciled the history and medication list with the patient today. Allergies Allergen Reactions Codeine Other Reaction(s): Unknown Methocarbamol Unknown Social History Tobacco Use Smoking status: Never Smokeless tobacco: Never Substance Use Topics Alcohol use: Not Currently Comment: caffeine intake: 1-2 cups per day Drug use: Never Family History Problem Relation Name Age of Onset Hypertension Mother Heart failure Mother Cancer Father Past Medical History: Diagnosis Date Anemia, iron deficiency Cervical pain (neck) Dehydration 07/2020 GERD (gastroesophageal reflux disease) Hiatal hernia HTN (hypertension) (CMS/HCC) Hydronephrosis Hyperthyroidism (CMS/HCC) 10/15/2022 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 Patient understands this limits the extent of exam possible and voiced consent for treatment through Telemedicine. This visit was conducted with audio and visual connection. - Long progressive cognitive decline over 7 years at least. No prior workup. Follow up in about 4 weeks (around 01/05/2024) for F/U med changes, MMSE on RTC. documented in this encounter [facility] 07-30-2022 Evaluation note Encounter Date Diagnosis Assessment Notes July, Visit for suture removal (ICD-10 - Z48.02) Keep the wound clean and dry. Apply antibiotic ointment to the wound daily until the wound is completely healed. Continue home medications as prescribed. Follow-up with your family physician for any further concerns [employer] Other 12-01-2022 Evaluation note* Encounter Date Diagnosis Assessment Notes Treatment Notes Treatment Clinical Notes Feb, Bilateral impacted cerumen (ICD-10 - H61.23) Ear wax removal completed in office today. Recommend Debrox ear drops as directed in box to prevent future impaction as well as refraining from using Q-tips or other objects to clear out ears. Follow up with PCP or ENT if no improvement of symptoms or symptom return Feb, Rib pain on right si de (ICD-10 - R07.81) Use muscle relaxer as needed. Feb, Gastroesophageal reflux disease, unspecified whether esophagitis present (ICD-10 - K21.9) Take this medication in addtion to the Protonix as needed. IF symptoms persist follow up. [employer] Other 10-10-2022 Evaluation note* Encounter Date Diagnosis Assessment Notes Treatment Notes Treatment Clinical Notes Dec, Stress incontinence (ICD-10 - N39.3) Dec, Essential hypertensi on (ICD-10 - I10) Dec, Gastroesophageal ref lux disease, unspecified whether esophagitis present (ICD-10 - K21.9) [employer] Other 09-20-2022 Evaluation note* Encounter Date Diagnosis Assessment Notes Treatment Notes Treatment Clinical Notes Nov, Stress incontinence (ICD-10 - N39.3) Continue current treatment at this time. Nov, Gastroesophageal ref lux disease, unspecified whether esophagitis present (ICD-10 - K21.9) continue current treatment at this time. Nov, Essential hypertensi on (ICD-10 - I10) Continue current treatment at this time. Nov, Rib pain on right si de (ICD-10 - R07.81) Xray shows no rib fractures at this time Nov, Right ear impacted cerumen (ICD-10 - H61.21) Ear wax removal completed in office today. Recommend Debrox ear drops as directed in box to prevent future impaction as well as refraining from using Q-tips or other objects to clear out ears. Nov, Right acute otitis media (ICD-10 - H66.91) Ear infections are often a secondary infection caused from an URI, the flu or allergies. Take medication as directed. Complete all doses, even if you feel better. Tylenol or ibuprofen can help with pain. Warm pack to area for comfort helps as well. [employer] Other 09-20-2022 NoteBones are grossly demineralized limiting evaluation for fracture. Heart appears normal in size.[employer] Other 06-02-2022 Evaluation note* Encounter Date Diagnosis Assessment Notes Treatment Notes Treatment Clinical Notes Aug, Rib pain on right si de (ICD-10 - R07.81) Will contact patient to inform them of results as she wanted to leave and go home to rest. Attempted to contact patient to to inform them of Xray results showing fracture of 10th rib Aug, Right hip pain (ICD- 10 - M25.551) Reinforced with patient that she needs to use walker or cane with ambulation at all times. Aug, Essential hypertensi on (ICD-10 - I10) Aug, Gastroesophageal ref lux disease, unspecified whether esophagitis present (ICD-10 - K21.9) Continue medication as it helps with discomfort. Patient is aware that she has Hiatel Hernia. Aug, Stress incontinence (ICD-10 - N39.3) [employer] Other Evaluation noteNo assessment information available [facility] Work Phone: Evaluation note* Diagnosis Moderate dementia with anxiety, unspecified dementia type (CMS/HCC)- Primary [facility] Diagnosis Incomplete emptying of bladder- Primary Incomplete bladder emptying Hiatal hernia Diaphragmatic hernia without mention of obstruction or gangrene Prolapse of urethra Prolapsed urethral mucosa [facility] Diagnosis Primary hypertension (CMS/HCC)- Primary Unspecified essential hypertension Moderate dementia with anxiety, unspecified dementia type (CMS/HCC) Panlobular emphysema (CMS/HCC) Other emphysema 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 Unsteady gait Abnormality of gait Frailty syndrome in geriatric patient Prolapse of urethra Prolapsed urethral mucosa Chronic indwelling Molina catheter documented in this encounter [facility] Diagnosis Moderate dementia with anxiety, unspecified dementia type (HCC)- Primary Panlobular emphysema (HCC) Other emphysema Primary hypertension Unspecified essential hypertension Weight loss Loss of weight documented in this encounter [facility] Narrative - Reported* Type Description Date Medical History HTN (hypertension) Medical History Hiatal hernia Medical History Esophageal reflux Medical History hydronephrosis Medical History anemia, iron deficient Medical History COPD (chronic obstructive pulmon lee ann disease) Surgical History hysterectomy Surgical History ankle surgery right Hospitalization History uti, dehydration 07/2020 [employer] Other Chief Complaint and Reason for Visit Chief Complaint E04.1 Chief Complaint R07.81 Advance Directives No Advanced Directives Records Found Advance Directive Response Recorded Date/ Time Advance Directives No July 24, 2020 2:37pm Advance Directive Response Recorded Date/ Time Advance Directives No July 24, 2020 1:37pm Summary Purpose Family History No Family History Records FoundNo Family History Records FoundNo Family History Records FoundNo Family History Records Found Additional Source Comments Care Teams (unrecognized sec tion and content) Team Status: Inactive Member Role Status Dates ISABELL Grimaldo Primary Care Provider Active Alma Rosa Swartz Jr, MD Attending Provider Active Team Status: Active Member Role Status Dates ISABELL Grimaldo Primary Care Provider Active Team Status: Inactive Member Role Status Dates ISABELL Grimaldo Attending Provider Active Soil And Plant Scientist Relationship Specialty Start Date End Date Craig Villanueva MD [address] [facility] 110 [place] [address] PCP - General Internal Medicine 04/28/23 Craig Villanueva MD [address] [facility] 110 [place] [address] PCP - Pedro [place] 05/23/23 Blanche Rajan MD [address] [place] [address] Referring Physician 09/25/22Friday, LESLEY Pickard [address] [facility] 110 [place] [address] Licensed Practical Nurse Family Medicine 04/28/23 Soil And Plant Scientist Relationship Specialty Start Date End Date Craig Villanueva MD [address] [facility] 110 [place] [address] PCP - General Internal Medicine 04/28/23 Craig Villanueva MD [address] [facility] 110 [place] [address] PCP - Pedro [place] 05/23/23 Blanche Rajan MD [address] [place] [address] Referring Physician 09/25/22 Melly Li LPN [address] [place] [address] Licensed Practical Nurse Family Medicine 04/28/23 Soil And Plant Scientist Relationship Specialty Start Date End Date Craig Villanueva MD [address] [facility] [address] [place] [address] PCP - General Internal Medicine 04/28/23 Craig Villanueva MD [address] [facility] [address] [place] [address] PCP - Pedro [place] 05/23/23 Blanche Rajan, FOAM MACHINE OPERATOR [address] [place] [address] Referring Physician 09/25/22 Leticia Palmer LPN 06/08/24 Amira Godoy, YARN DUMPER Rn Case Manager Family Medicine 06/08/24 Soil And Plant Scientist Relationship Specialty Start Date End Date Cragi Villanueva MD [address] [facility] [address] [place] [address] PCP - General Internal Medicine 04/28/23 Craig Villanueva MD [address] [facility] [address] [place] [address] BYRON Vasquez MA 05/23/23 Blanche Rajan NP [address] [place] [address] Referring Physician 09/25/22 Leticia Palmer LPN 06/08/24 Amira Godoy, [facility] Rn Case Manager Family Medicine 06/08/24 Soil And Plant Scientist Relationship Specialty Start Date End Date Craig Villanueva MD [address] [facility] 110 [place] [address] PCP - General Internal Medicine 04/28/23 Craig Villanueva MD [address] [facility] 110 [place] [address] PCP - Pedro [place] 05/23/23 Blanche Rajan NP [address] [place] [address] Referring Physician 09/25/22 Leticia Palmer LPN 06/08/24 Amira Godoy, [facility] Rn Case Manager Family Medicine 06/08/24 Goals (unrecognized section and content) Goals may be documented in a n alternate sectionNo InformationNo InformationNo InformationGoals may be documented in an alternate sectionNo InformationNo Information REASON FOR VISIT (unrecogniz ed section and content) Reason Comments Altered Mental Status Reason Comments Dementia Reason Comments Follow-up INFORMATION SOURCE (unrecogn ized section and content) DATE CREATED AUTHOR 11/29/2021 [facility] DATE CREATED AUTHOR AUTHOR'S ORGANIZ ATION 02/23/2022 [facility] DATE CREATED AUTHOR AUTHOR'S ORGANIZ ATION 07/17/[address] [facility] DATE CREATED AUTHOR AUTHOR'S ORGANIZ ATION 09/04/2024 [facility] Specialists EPIC FOR RECORDS PERTAINING TO PATIENTS WHO ARE OR HAVE BEEN ENROLLED IN A CHEMICAL DEPENDENCY/SUBSTANCEABUSE PROGRAM, SOME INFORMATION MAY BE OMITTED. This clinical summary was aggregated from multiple sources. Caution should be exercised in using it in the provision of clinical care. This summary normalizes information from multiple sources, and as a consequence, information in this document may materially change the coding, format and clinical context of patient data. In addition, data may be omitted in some cases. CLINICAL DECISIONS SHOULD BE BASED ON THE PRIMARY CLINICAL RECORDS. [facility]. provides no warranty or guarantee of the accuracy or completeness of information in this document.
--- OUTSIDE RECORDS SUMMARY | 2024-09-24 19:55 | XMS_ITS | Encounter Summary ---
Author Organization [facility] Address [address] [place] [address] Care Team Providers Care Meat Processing Center Manager Name Role Phone Blanche Joshi NP Unavailable Craig Villanueva MD Primary Care Provider [phone] Craig Villanueva MD Unavailable [phone] Hilaria Carrera RN Unavailable [phone] Leticia Palmer CLOTH PRINTING BACK TENDER Unavailable Amira Godoy CHECK CLERK Unavailable Encounter Details Date Type Department Care Team (Late st Contact Info) Description 05/25/2024 Abstract [facility] 110 [place] [id number] Craig Villanueva MD 112 [facility] 110 [place], [place] [id number] Social History Tobacco Use Types Packs/Day Years [...] Never 05/14/2023 How often do you attend sabianist or yazdanism serv ices? Never 05/14/2023 Do you belong to any clubs o r organizations such as sabianist groups, unions, fraternal or athletic groups, or [...] housing, medical care, and heating? Hard 05/14/2023 [facility] - Occupational Stress Questionnaire Answer Date Recorded [...] place to sleep or slept in a senior living (including now)? No 05/14/2023 Comments Unknown Sex [...] on filedocumented in this encounter Care Teams Meat Processing Center Manager Relationship Specialty Start Date End Date Craig Villanueva MD [address] [facility] 110 [place] [address] PCP - General Internal Medicine 04/28/23 Craig Villanueva MD [address] [facility] 110 [place] [address] PCP - Pedro [place] 05/23/23 Blanche Joshi NP [facility] [place] [address] Referring Physician 09/25/22 Hilaria Carrera, JER [address] [place] [address] Licensed Practical Nurse Family Medicine 04/30/24 06/08/24 Leticia Palmer LPN [address] [facility] 110 [place] [address] 06/08/24 Amira Godoy LSW [address] [place] [address] Director Insurance Family Medicine 06/08/24 documented as of this encounter
--- OUTSIDE RECORDS SUMMARY | 2024-09-24 19:55 | XMS_ITS | Patient Health Record ---
Author Organization [facility] es Address [address] [facility] [place] [address] Care Team Providers Care Lumber Cutter Name Role Phone Blanche Joshi Primary Care Provider Reason For Referral No Information Plan Of Treatment No Information Insurance Providers Payer Name Payer Address Payer Phone Subscriber Number Group Number Insured Name Patient Relationship to Insured Coverage Start Date Coverage End Date [employer] [address] [address] [place] [address] [id number] MICHEL GRIDER Self - patient is the insured 4
--- OUTSIDE RECORDS SUMMARY | 2024-09-24 19:55 | XMS_ITS | Encounter Summary ---
Author Organization [facility] Address [address] [place] [address] Care Team Providers Care Mounter Automatic Name Role Phone MadelynBlanche CARE MANAGER Unavailable [phone] Unallocated, [facility]oms Provider Primary Care Provi mary Craig Villanueva MD Unavailable [phone] Craig Villanueva MD Primary Care Provider Friday, Melly SUTTON Unavailable [phone] Craig Villanueva MD Unavailable [phone] Hilaria Carrera RN Unavailable [phone] Leticia Palmer CYANIDE POT TENDER Unavailable Amira Godoy BACK FILLER OPERATOR Unavailable Encounter Details Date Type Department Care Team (Late st Contact Info) Description 04/03/2023 Abstract [facility] 112 [facility] 110 [place] [id number] Craig Villanueva MD 112 [facility] 110 [place], [place] [id number] Social History Tobacco Use Types Packs/Day Years Used Date Smoking Tobacco: Never Smokeless Tobacco: Never Alcohol Use Standard Drinks/Week Comments Not Currently 0 (1 standard drink = 0.6 oz pure alcohol) caffeine intake: 1-2 cups per day Comments Unknown Sex and Gender Information Value [...] on filedocumented in this encounter Care Teams Mounter Automatic Relationship Specialty Start Date End Date Unallocated, Noms Provider, [address] [place] [address] PCP - General 09/25/22 04/27/23 Craig Villanueva MD [address] [facility] [address] [place] [address] PCP - Pedro [place] 11/22/22 04/23/23 Craig Villanueva MD [address] [facility] [address] [place] [address] PCP - General Internal Medicine 04/28/23 Craig Villanueva MD [address] [facility] 110 [place] [address] PCP - Pedro [place] 05/23/23 Blanche Joshi NP [address] [place] [facility] [place] [address] Referring Physician 09/25/22FridayMelly LPN [address] [facility] 110 [place] [address] Licensed Practical Nurse Family Medicine 04/28/23 04/30/24 Hilaria Carrera, JER [address] [place] [address] Licensed Practical Nurse Family Medicine 04/30/24 06/08/24 Leticia Palmer LPN [address] [facility] 110 [place] [address] 06/08/24 Amira Godoy LSW [address] [place] [address] Tower Director Family Medicine 06/08/24 documented as of this encounter
--- OUTSIDE RECORDS SUMMARY | 2024-09-24 19:55 | XMS_ITS | Encounter Summary ---
Author Organization [facility] Address [address] [place] [address] Care Team Providers Care Psychiatric Technician Name Role Phone Madelyn Blanche WILKERSON Unavailable [phone] Unallocated, Noms Provider Primary Care Provi mary Craig Villanueva MD Unavailable [phone] Craig Villanueva MD Primary Care Provider Friday, Melly SUTTON Unavailable [phone] Craig Villanueva MD Unavailable [phone] Hilaria Carrera RN Unavailable Leticia Palmer ASSISTANT FARM OPERATIONS MANAGER Unavailable Amira Godoy SCREEN WRITER Unavailable Encounter Details Date Type Department Care Team (Late st Contact Info) Description 09/16/2022 Orders Only [facility] [address] [place] [address] Neisha Dee MA Thyroid nodule Social History Tobacco Use Types Packs/Day Years Used Date Smoking Tobacco: Never Assessed Comments Unknown Sex and Gender Information Value Date Recorded Sex Assigned at Female 04/28/2023 11:51 AM EST Legal Sex Female 11:16 PM EDT Gender Identity Female 04/28/2023 11:51 AM EST Sexual Orientation Straight 04/28/2023 11 :51 AM EST documented as of this encounter Plan of Treatment Scheduled Orders Name Type Priority Associated Diagnoses Orde r Schedule US thyroid Imaging Routine Thyroid nodule Expected: 09/16/2022, Expires: 09/17/2023 documented as of this encounter Visit Diagnoses Diagnosis Thyroid nodule Nontoxic uninodular goiter documented in this encounter Care Teams Psychiatric Technician Relationship Specialty Start Date End Date Unallocated, Noms Provider, [address] [place] [address] PCP - General 09/25/22 04/27/23 Craig Villanueva MD [address] [facility] 110 [place] [address] PCP - Pedro DE 11/22/22 04/23/23 Craig Villanueva MD [address] [facility] 110 [place] [address] PCP - General Internal Medicine 04/28/23 Craig Villanueva MD [address] [facility] 110 [place] [address] PCP - Pedro [place] 05/23/23 Blanche Joshi NP [address] [place] [address] Referring Physician 09/25/22FridayMelly LPN [address] [facility] 110 [place] [address] Licensed Practical Nurse Family Medicine 04/28/23 04/30/24 Hilaria Carrera, JER [address] [place] [address] Licensed Practical Nurse Family Medicine 04/30/24 06/08/24 Leticia Palmer LPN [address] [facility] 110 [place] [address] 06/08/24 Amira Godoy LSW [address] [place] [address] Patient Admitting Clerk Family Medicine 06/08/24 documented as of this encounter
--- OUTSIDE RECORDS SUMMARY | 2024-09-24 19:55 | XMS_ITS | Encounter Summary ---
Author Organization [facility] Address [address] [place] [address] Care Team Providers Care Recreation Program Coordinator Name Role Phone MadelynOsbaldoie DIRECTOR OF INTERCOLLEGIATE ATHLETICS Unavailable [phone] Craig Villanueva MD Primary Care Provider Friday, Melly ELECTRIC DISTRIBUTION CHECKER Unavailable [phone] Craig Villanueva MD Unavailable [phone] Hilaria Carrera RN Unavailable [phone] Leticia Palmer ELECTRIC DISTRIBUTION CHECKER Unavailable Amira Godoy MANAGER OF GLOBAL Unavailable Encounter Details Date Type Department Care Team (Late st Contact Info) Description 09/23/2023 Abstract [facility] [address] [facility] 110 [place] [id number] Craig Villanueva MD 112 [facility] 110 [place] [address] Social History Tobacco Use Types [...] Never 05/14/2023 How often do you attend orthodoxy or rastafarian serv ices? Never 05/14/2023 Do you belong to any clubs o r organizations such as orthodoxy groups, unions, fraternal or athletic groups, or [...] housing, medical care, and heating? Hard 05/14/2023 [facility] - Occupational Stress Questionnaire Answer Date Recorded [...] place to sleep or slept in a detention (including now)? No 05/14/2023 Comments Unknown Sex [...] on filedocumented in this encounter Care Teams Recreation Program Coordinator Relationship Specialty Start Date End Date Craig Villanueva MD [address] [facility] 110 [place] [address] PCP - General Internal Medicine 04/28/23 Craig Villanueva MD [address] [facility] 110 [place] [address] PCP - Pedro [place] 05/23/23 Blanche Joshi NP [address] [place] [address] Referring Physician 09/25/22FridayMelly LPN [address] [facility] 110 [place] [address] Licensed Practical Nurse Family Medicine 04/28/23 04/30/24 Hilaria Carrera RN [address] [place] [address] Licensed Practical Nurse Family Medicine 04/30/24 06/08/24 Leticia Palmer LPN [address] [facility] 110 [place] [address] 06/08/24 Amira Godoy, JORGE [address] [place] [address] Barrel Charrer Family Medicine 06/08/24 documented as of this encounter
--- OUTSIDE RECORDS SUMMARY | 2024-09-24 19:55 | XMS_ITS | Clinical Summary ---
Author Organization [facility] Healthcare Address [address] [place] [address] Care Team Providers Care Sports Umpire Name Role Phone Blanche Joshi NP Unavailable [phone] Craig Villanueva MD Primary Care Provider Craig Villanueva MD Unavailable [phone] Leticia Palmer CLINICAL PROJECT ASSISTANT Unavailable Amira Godoy LEAN FACILITATOR Unavailable [phone] Allergies Active Allergy Reactions Criticality Noted Date Comments Codeine 10/14/2022 Other Reaction(s): Unknown Methocarbamol Unknown 10/14/2022 Medications losartan (Cozaar) 25 MG tabletIndication s:Hypertension, unspecified type Take 1 tablet (25 mg) by mouth in the morning. 100 tablet 3 4 Active albuterol HFA 90 mcg/act inhalerIndicatio ns:Panlobular emphysema (HCC) Inhale 2 puffs every 4 (four) hours if needed for wheezing 18 g 3 4 Active oxybutynin (Ditropan) 5 MG tabletIndication s:Prolapse of urethra Take 1 tablet (5 mg) by mouth Daily 90 tablet 3 4 Active pantoprazole (ProtoNix) 40 MG EC tabletIndication s:Hiatal hernia Take 1 tablet (40 mg) by mouth Daily 90 tablet 3 4 12/09/19 25 Active donepezil (Aricept) 10 MG tabletIndication s:Moderate dementia with anxiety, unspecified dementia type (HCC) Take 1 tablet (10 mg) by mouth at bedtime 30 tablet 11 5 09/03/19 26 Active donepezil (Aricept) 5 MG tabletIndication s:Moderate dementia with anxiety, unspecified dementia type (HCC) Take 1 tablet (5 mg) by mouth at bedtime 30 tablet 11 5 09/03/19 25 Discontinu ed(Reorder ) Active Problems Problem Noted Date Diagnosed Date Chronic indwelling Molina catheter 07/09/2024 Moderate dementia with anxiety 12/08/2023 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 04/25/2023 Unsteady gait 04/25/2023 Frailty syndrome in geriatric patient 04/25/2023 Anemia 04/24/2023 Primary osteoarthritis involving multiple joints 04/24/2023 Headache 04/24/2023 Urinary retention 04/24/2023 Poor urinary stream 04/24/2023 Postinfective urethral stricture in female 04/24 Prolapse of urethra 04/24/2023 Pulmonary emphysema 11/07/2022 Recurrent urinary tract infection 11/07/2022 Hyperthyroidism 11/07/2022 Multinodular goiter 10/15/2022 Hypertension 10/15/2022 Iron deficiency anemia 10/15/2022 Hydronephrosis 10/15/2022 Hiatal hernia 10/15/2022 Resolved Problems Problem Noted Date Diagnosed Date Resolved Date Overweight with body mass in dex (BMI) 25.0-29.9 04/24/2023 07/09/2024 Non-toxic nodular goiter 10/15/2022 Hyperthyroidism 10/15/2022 10/15/2022 Encounters Date Type Department Care Team Description 09/02/2024 10:00 AM EDT Telemedicine [facility] [address] [place] [address] Craig Villanueva MD Moderate dementia with anxiety, unspecified dementia type (HCC) (Primary Dx); Panlobular emphysema (HCC); Primary hypertension ; Weight loss 09/02/2024 Travel 09/01/2024 Patient Outreach [facility] [address] [place] [address] Amira Godoy LSW 07/19/2024 Patient Outreach [facility] [address] [place] [address] Amira Godoy LSW 07/09/2024 11:00 AM EDT Office Visit [facility] [address] [place] [id number] Craig Villanueva MD Primary hypertension (Primary Dx); Moderate dementia with anxiety, unspecified dementia type (HCC); Panlobular emphysema (HCC); Primary osteoarthritis involving multiple joints; Spondylosis of cervical region without myelopathy or radiculopathy; Unsteady gait; Frailty syndrome in geriatric patient; Prolapse of urethra; Chronic indwelling Molina catheter 07/09/2024 Bamboo flowsheet [facility] [address] [place] [address] Craig Villanueva MD 07/09/2024 Travel from Last 3 Months Immunizations Immunization Administration Dates Next Due Influenza, High Dose Seasonal, Preservative Free 03/09/2022 Influenza, Seasonal, Quadrivalent, Adjuvanted Pneumococcal Conjugate PCV 13 07/31/2020 Pneumococcal Polysaccharide PPSV23 03/09/2022 Family History Medical History Relation Name Comments Cancer Father Heart failure Mother Hypertension Mother Relation Name Status Comments Father Mother Social History Tobacco Use Types Packs/Day Years Used Date Smoking Tobacco: Never Smokeless Tobacco: Never Tobacco Cessation:Counseling Given: Yes Alcohol Use Standard Drinks/Week Comments Not Currently 0 (1 standard drink = 0.6 oz pure alcohol) caffeine intake: 1-2 cups per day [id number] Health Literacy Answer Date Recor ded How often do you need to hav e someone help you when you read instructions, pamphlets, or other written material from your doctor or pharmacy? Always 09/02/2024 Humiliation, Afraid, Rape, and Kick questionnair e Answer Date Recorded Within the last year, have y ou been afraid of your partner or ex-partner? No 09/02/2024 Within the last year, have y ou been humiliated or emotionally abused in other ways by your partner or ex-partner? No Within the last year, have y ou been kicked, hit, slapped, or otherwise physically hurt by your partner or ex-partner? No 09/02/2024 Within the last year, have y ou been raped or forced to have any kind of sexual activity by your partner or ex-partner? No 09/02/2024 Social Connection and Isolation Panel [NHANES] A nswer Date Recorded In a typical week, how many times do you talk on the phone with family, friends, or neighbors? Never 09/02/2024 How often do you get together with friends or re latives? Never 09/02/2024 How often do you attend gnosticist or episcopal serv ices? Never 09/02/2024 Do you belong to any clubs o r organizations such as gnosticist groups, unions, fraternal or athletic groups, or school groups? No 09/02/2024 How often do you attend meet ings of the clubs or organizations you belong to? Never 09/02/2024 Are you , , di vorced, , never , or living with a partner? 09/02/2024 AUDIT-C Answer Date Recorded Q1: How often do you have a drink containing alc ohol? Monthly or less 09/02/2024 Q2: How many drinks containi ng alcohol do you have on a typical day when you are drinking? 1 or 2 09/02/2024 Q3: How often do you have si x or more drinks on one occasion? Never 09/02/2024 Overall Financial Resource Strain (CARDIA) Answe r Date Recorded How hard is it for you to pa y for the very basics like food, housing, medical care, and heating? Not hard at all 09/02/2024 PHQ-2 Answer Date Recorded Patient Health Questionnaire-2 Score 0 09/02/2024 [facility] [place] of Occupat ional Health - Occupational Stress Questionnaire Answer Date Recorded Do you feel stress - tense, restless, nervous, or anxious, or unable to sleep at night because your mind is troubled all the time - these days? Only a little 09/02/2024 Exercise Vital Sign Answer Date Recorde d On average, how many days pe r week do you engage in moderate to strenuous exercise (like a brisk walk)? 0 days 09/02/2024 On average, how many minutes do you engage in exercise at this level? 0 min 09/02/2024 Hunger Vital Sign Answer Date Recorded Within the past 12 months, y ou worried that your food would run out before you got the money to buy more. Never true 09/03/19 25 Within the past 12 months, t he food you bought just didn't last and you didn't have money to get more. Never true 09/02/2024 PRAPARE - Transportation Answer Date Re corded In the past 12 months, has l ack of transportation kept you from medical appointments or from getting medications? No 08/22 In the past 12 months, has l ack of transportation kept you from meetings, work, or from getting things needed for daily living? No 09/02/2024 Housing Stability Vital Sign Answer Sher e [...] place to sleep or slept in a penitentiary (including now)? No 05/14/2023 Housing Stability Vital Sign Answer Sher e Recorded In the last 12 months, was t here a time when you were not able to pay the mortgage or rent on time? No 09/02/2024 Number of Times Moved in the Last Year Not on fi le 09/02/2024 At any time in the past 12 m [facility], were you homeless or living in a penitentiary (including now)? No 09/02/2024 Comments Unknown Sex and Gender Information Value Date Recorded Sex Assigned at Female 04/28/2023 11:51 AM EST Legal Sex Female 11:16 PM EDT Gender Identity Female 04/28/2023 11:51 AM EST Sexual Orientation Straight 04/28/2023 11 :51 AM EST Last Filed Vital Signs Vital Sign Reading Time Taken Comments Blood Pressure 124/66 07/09/2024 10:49 AM EDT Pulse 71 07/09/2024 10:49 AM EDT Temperature - - Respiratory Rate - - Oxygen Saturation 96% 07/09/2024 10:49 AM EDT Inhaled Oxygen Concentration - - Weight 43.1 kg (95 lb) 07/09/2024 10:49 AM EDT Height 149.9 cm (4' 11 ) 09/02/2024 9:41 AM EDT Body Mass Index 19.19 07/09/2024 10:49 AM EDT Plan of Treatment Health Maintenance Due Date Last Done Comments Influenza Vaccine (#1) 2024 03/09/2022, 2021 Pneumococcal Vaccine: 65+ Years Completed , 07/31/2020 Insurance [employer] MEDICAID [place] Care Teams Sports Umpire Relationship Specialty Start Date End Date Craig Villanueva MD [address] [address] PCP - General Internal Medicine 04/28/23 Craig Villanueva MD [address] [address] PCP - Pedro DE 05/23/23 Blanche Joshi NP [address] [place] [address] Referring Physician 09/25/22 Leticia Palmer, LESLEY [address] [facility] [address] [place] [address] 06/08/24 Amira Godoy, LEAN FACILITATOR [address] [place] [address] Currency Examiner Family Medicine 06/08/24
--- OUTSIDE RECORDS SUMMARY | 2024-09-24 19:55 | XMS_ITS ---
Author Organization [facility] Address [address] [place] [address] Care Team Providers Care Kiln Transfer Operator Name Role Phone Blanche Joshi NP Unavailable [phone] Craig Villanueva MD Primary Care Provider [phone] Craig Villanueva MD Unavailable [phone] Leticia Palmer LPN Unavailable Amira Godoy Unavailable [phone] Chronic Care Management (CCM) Status:Enrolled (Active) Start date:04/28/2023 Enrollment date:04/28/2023 Enrollment reason:Referred by provider Overview 04/07/24, 3:16 PM - Mellyfriday, SOFTWARE INTEGRATION DEVELOPER- Patient gives verbal consent to be enrolled in CCM Program and understands there could be a bill for this service. I did speak with jacki Rucker on 04/05/2024 Case Team Name Relationship Phone Amira ELIZALDEW Clam Picker [phone] Leticia Palmer LPN(Responsible Staff) [phone] Continued Care and Services Coordination
--- NOTE | 2024-09-24 20:10 | ECG_ITS ---
[facility] Test Date: 2024-09-24 Pat Name: MICHEL GRIDER Department: Room: - Gender: Female Senior Director Finance: : 1940 Requested By: [id number] Order Number: [id number] Reading MD: CAMILA SUNSHINE M.D. Measurements Intervals [place] Rate: 63 P: 73 MA: 198 QRS: 86 QRSD: 120 T: 78 QT: 428 QTc: 434 Interpretive Statements 1100 Sinus rhythm 2450 Right bundle branch block 9150 abnormal ECG Compared to ECG 03/08/2022 03:13:45 First degree AV block no longer present Electronically Signed On 09-26-2024 17:21:44 EDT by CAMILA SUNSHINE M.D.
--- NOTE | 2024-09-24 20:20 | ED.FALL1 ---
HPI HPI - Fall General Chief Complaint: Fall Stated Complaint: FALL Time Seen by Provider: 09/24/24 20:12 Source: patient Mode of arrival: ambulance Limitations: no limitations and altered mental status History of Present Illness HPI Narrative: 83 demented patient. Daughter states she is often confused. She lives with her daughter. Daughter states she is suppose to use a walker but she often does not. Fell in the hallway tonight. laceration to her left scalp. Patient denies LOC but not able to rely on her history due to her dementia. Family did here her fall and found her awake. She is only complaining of injury to her head. She is also complaining of heart burn. Daughter states she has a hiatal hernia and always for years has complained of heart burn. No dyspnea. No complaint of extremity weakness. Related Data Home Medications �Medication �Instructions �Recorded �Confirmed famotidine 20 mg tablet 20 mg PO Q8H PRN acid reflux 01/14/23 01/14/23 losartan 25 mg tablet 50 mg PO QDAY 01/14/23 01/14/23 oxybutynin chloride 5 mg tablet 5 mg PO QDAY 01/14/23 01/14/23 pantoprazole 40 mg tablet,delayed 40 mg PO DAILY 01/14/23 01/14/23 release tramadol 50 mg tablet 50 mg PO DAILY PRN pain 01/14/23 01/14/23 Allergies Allergy/AdvReac Type Severity Reaction Status Date / Time codeine Allergy Severe Unknown Verified 09/24/24 20:59 methocarbamol (From Robaxin) Allergy Severe Unknown Verified 09/24/24 20:59 Opioid HPI Opioid Management Most Recent Pain and Opioid Data: Last Pain Scale 4 01/14/23, 19:00 Review of Systems ROS Status of ROS unobtainable due to mental status [facility] Medical History (Updated 09/24/24 @ 23:51 by Francisco Barrera MD) Osteoarthritis �M19.90 - Unspecified osteoarthritis, unspecified site (ICD-10) Age related osteoporosis �M81.0 - Age-related osteoporosis without current pathological fracture (ICD-10) Contusion of hip �S70.00XA - Contusion of unspecified hip, initial encounter (ICD-10) Inability to ambulate due to hip �R26.2 - Difficulty in walking, not elsewhere classified (ICD-10) Acute knee pain �M25.569 - Pain in unspecified knee (ICD-10) History of arthritis �Z87.39 - Personal history of other diseases of the musculoskeletal system and connective tissue (ICD-10) History of ankle fracture �Z87.81 - Personal history of (healed) traumatic fracture (ICD-10) History of hypertension �Z86.79 - Personal history of other diseases of the circulatory system (ICD-10) History of gastroesophageal reflux (GERD) �Z87.19 - Personal history of other diseases of the digestive system (ICD-10) History of COPD �Z87.09 - Personal history of other diseases of the respiratory system (ICD-10) History of dementia �Z86.59 - Personal history of other mental and behavioral disorders (ICD-10) Surgical History (Updated 01/14/23 @ 14:57 by Marcelina Barrera) History of cataract surgery �Z98.49 - Cataract extraction status, unspecified eye (ICD-10) History of ankle surgery �Z98.890 - Other specified postprocedural states (ICD-10) History of hysterectomy �Z90.710 - Acquired absence of both cervix and uterus (ICD-10) Social History (Updated 01/14/23 @ 14:59 by Marcelina Barrera) Within the past year, how often did you have a drink containing alcohol: never Score interpretation: A score less than 3 is consistent with normal alcohol consumption. Smoking status: Never smoker Non-prescribed substance use: denies use Previous occupational history: Director Of Materials Management Highest level of school completed/degree received: some college, no degree Are you now , , , , never or living with a partner: In a typical week, how many times do you talk on the telephone with family, friends, or neighbors: 3 or more times per week How often do you get together with friends or relatives: 3 or more times per week How often do you attend protestant or uatsdin services: 1-3 times per year Do you belong to any clubs or organizations such as protestant groups unions, fraternal or athletic groups, or school groups: no Total score: 1 Score interpretation: A score of less than or equal to 1 indicates the most socially isolated. Little interest or pleasure in doing things: not at all Feeling down, depressed, or hopeless: not at all Feel stressed/tense/nervous/anxious/difficulty sleeping: not at all Due to disability, difficulty making decisions: No Do you think of yourself as: straight/heterosexual Gender Identity: female Exam Constitutional Vital Signs, click to edit/add: Last Vital Signs Temp 99 F 09/24/24 19:51 Pulse 58 L 09/24/24 22:50 Resp 54 H 09/24/24 22:20 BP 147/78 H 09/24/24 22:30 Pulse Ox 98 09/24/24 22:50 O2 Del Method Room Air 09/24/24 19:51 Common normals: no apparent distress and alert HENMT Face and sinus: normal facial exam Face and sinus images:  1. flap scalp lac External ear: external ears normal Eye Common normals: EOMs intact bilaterally Neck & C-Spine Common normals: full ROM and supple Chest Common normals: inspection of chest normal and palpation of chest normal Respiratory Common normals: normal respiratory effort, no retractions, no use of accessory muscles and clear to auscultation bilaterally Cardio Common normals: regular rate, regular rhythm, S1 normal heart sound and S2 normal heart sound GI Common normals: Normal to inspection, nondistended, normoactive bowel sounds present, soft to palpation and non-tender Back & Pelvis Other: left hip tender. able to raise left leg without complaint of pain Extremity Other: normal inspection bilat upper and right lower extremity. Left lower ext WNL except tenderness left hip Neuro Common normals: CN's II-XII intact bilaterally and moves all extremities Other: difficulty following instructions when ask to move her feet or push her feet against my hands. Finally did do so after repeatedly asking but effort was poor Course Vital Signs Vital signs: Vital Signs Pulse Oximetry 97 09/24/24 19:47 Temperature 99 F 09/24/24 19:51 Pulse Rate 58 L 09/24/24 22:50 Respiratory Rate 54 H 09/24/24 22:20 Blood Pressure 147/78 H 09/24/24 22:30 Pulse Oximetry 98 09/24/24 22:50 Oxygen Delivery Method Room Air 09/24/24 19:51 MDM - Fall MDM Narrative Medical decision making narrative: patient fell at home and lacerated her scalp. She is suppose to use her walker to ambulate but again did not use tonight. Family heard her fall and found her awake on the ground. Not certain about LOC. No complaint of dizziness or nausea. lac repaired as above. CTs neg for acute finding. CT did demonstrate contusion left hip and left hip tender on exam. Patient and family informed of the findings and patient discharged home Lab Data Labs: Lab Results 09/24/24 Range/Units 20:40 WBC 5.9 (4.0-11.0) 10^3/uL RBC 4.32 (4.20-5.40) 10^6/uL Hgb 11.7 L (12.0-16.0) g/dL Hct 36.2 (36.0-48.0) % MCV 83.8 (81.0-99.0) fL MCH 27.1 (26.7-34.0) pg MCHC 32.3 (29.9-35.2) g/dL RDW 13.8 (11.0-15.0) % Plt Count 314 (150-450) 10^3/uL MPV 8.8 L (9.5-13.5) fL Neut % (Auto) 55.8 (43.0-75.0) % Lymph % (Auto) 31.5 (20.5-60.0) % [place] % (Auto) 10.8 (1.7-12.0) % Eos % (Auto) 0.7 L (0.9-7.0) % Baso % (Auto) 1.0 (0.2-2.0) % Neut # (Auto) 3.3 (1.4-6.5) 10^3/uL Lymph # (Auto) 1.9 (1.2-3.8) 10^3/uL [place] # (Auto) 0.6 (0.3-0.8) 10^3/uL Eos # (Auto) 0.0 (0.0-0.7) 10^3/uL Baso # (Auto) 0.1 (0.0-0.1) 10^3/uL Abs Immat Gran (auto) 0.01 (0.00-0.03) 10^3/uL Imm/Tot Granulo (auto) 0.2 (0.0-0.5) % Sodium 140 (136-145) mmol/L Potassium 3.9 (3.5-5.1) mmol/L Chloride 102 (98-107) mmol/L Carbon Dioxide 28.6 (21.0-32.0) mmol/L Anion Gap 13.3 BUN 18.0 (7.0-18.0) mg/dL Creatinine 0.62 (0.55-1.02) mg/dL Est GFR ( Amer) >60 (>=60 mL/min/1.73m^2) Est GFR (Non-Af Amer) >60 (>=60 mL/min/1.73m^2) BUN/Creatinine Ratio 29.0 Glucose 95 (74-106) mg/dL Calcium 9.1 (8.5-10.1) mg/dL Troponin I High Sens 10.8 (4.0-51.3) pg/mL Discharge Plan Discharge Chief Complaint: Fall Clinical Impression: Contusion of hip, left, Head injury, Laceration of scalp Patient Disposition: Home, Self-Care Prescriptions / Home Meds: No Action famotidine 20 mg tablet 20 mg PO Q8H PRN (Reason: acid reflux) losartan 25 mg tablet 50 mg PO QDAY oxybutynin chloride 5 mg tablet 5 mg PO QDAY pantoprazole 40 mg tablet,delayed release (DR/EC) 40 mg PO DAILY tramadol 50 mg tablet 50 mg PO DAILY PRN (Reason: pain) Rx Instructions: Takes very rarely Print Language: Latvian Instructions: Laceration (ED), Head Injury (ED), Hip Contusion (ED) Additional Instructions: have wound rechecked in 2-3 days and christine removed in 10-12 days Referrals: MIRELA MUIR [Primary Care Provider, Internal Medicine] - 1 week Procedures ED Procedure Instructions Procedures Procedures: scalp lac. left parietal 6cm flap SQ lac. 1% lido as local. Site cleaned with betadine and rinsed with saline. closed with # 8 christine
--- NOTE | 2024-09-24 20:27 | XR_ITS ---
[address] [address] Patient Name: MICHEL GRIDER MRN: [id number] date: 1940 Sex: F Assigned Patient Location: ED.MAIN Current Patient Location: Accession/Order Number: [id number] Exam Date: 09/25/2024 09:24 Report Date: 09/25/2024 09:26 At the request of: RICH PALMER MD Procedure: XR chest 1V Plain film chest Single view HISTORY: Fell. Head laceration. COMPARISON: 03/08/2022 FINDINGS: SUPPORT DEVICES: None POSTSURGICAL CHANGES: None HEART: Mild cardiomegaly PULMONARY REBECA: Within normal limits MEDIASTINUM: Atherosclerosis. Hiatal hernia. LUNGS AND PLEURA: No acute lung process, pleural effusion or pneumothorax identified. Hyperinflation. Mild chronic interstitial changes. BONY STRUCTURES: Intact ADDITIONAL FINDINGS None XR/XR chest 1V IMPRESSION: No acute process. Impression dictated by: Domingo Sofia M.D. 09/25/2024 9:26 AM Dictation Location: [email or web address] Electronically authenticated by: [id number] Y Date: 09/25/2024 09:26
[2024-09-24 20:50] LABS: Hematocrit 36.2 % (36.0-48.0); Hemoglobin 11.7 g/dL (12.0-16.0); Immature Granulocytes Abs Auto 0.01 10^3/uL (0.00-0.03); Immature Granulocytes Pct Auto 0.2 % (0.0-0.5); Lymphocytes Absolute Auto 1.9 10^3/uL (1.2-3.8); Mean Corpuscular HGB Conc 32.3 g/dL (29.9-35.2); Mean Corpuscular Hemoglobin 27.1 pg (26.7-34.0); Mean Corpuscular Volume 83.8 fL (81.0-99.0); Platelet Count 314 10^3/uL (150-450); Red Blood Count 4.32 10^6/uL (4.20-5.40); White Blood Count 5.9 10^3/uL (4.0-11.0)
[2024-09-24] MEDS: ADACEL DIPH,PERTUSS(ACELL),TET VAC/PF 0.5 ML ADULT SYRINGE IM (20:56)
[2024-09-24] MEDS: LIDOCAINE HCL 1%-EPINEPHRINE 1:100,000 20 ML MDV INJ (20:57)
[2024-09-24 21:07] LABS: Anion Gap 13.3; Blood Urea Nitrogen 18.0 mg/dL (7.0-18.0); Calcium 9.1 mg/dL (8.5-10.1); Carbon Dioxide 28.6 mmol/L (21.0-32.0); Chloride 102 mmol/L (98-107); Estimated GFR (African America >60 (>=60 mL/min/1.73m^2); Estimated GFR (Non-African Ame >60 (>=60 mL/min/1.73m^2); Glucose 95 mg/dL (74-106); Potassium 3.9 mmol/L (3.5-5.1); Sodium 140 mmol/L (136-145)
[2024-09-25] VITALS: BP 153/75; O2SAT 95
== END 2024-09-25 00:15 | disposition home or self-care (01) ==
PROVIDERS: Emergency Provider Internal Medicine; PCP Internal Medicine
DX: S01.01XA Laceration without foreign body of scalp, initial encounter (principal); S70.02XA Contusion of left hip, initial encounter; S09.90XA Unspecified injury of head, initial encounter; W18.39XA Other fall on same level, initial encounter; F03.90 Unspecified dementia, unspecified severity, without behavioral disturbance, psychotic disturbance, mood disturbance, and anxiety; K44.9 Diaphragmatic hernia without obstruction or gangrene; R12 Heartburn; M47.812 Spondylosis without myelopathy or radiculopathy, cervical region; M48.02 Spinal stenosis, cervical region; Z90.710 Acquired absence of both cervix and uterus; Z23 Encounter for immunization
CPT/HCPCS: 12002; 36415; 70450; 71045; 72125; 73700; 80048; 84484; 85025; 90471; 90715; 93005; 99285